=== PATIENT | female | born 1945 | race Caucasian/White ===

== ENCOUNTER → 2017-10-02 07:51 | Outpatient (CLI) | payer MEDICARE, SELFPAY ==
[2017-10-02 09:18] LABS: ALB/GLOB Ratio 0.9 RATIO (0.9-2.4); AST(SGOT) 17 U/L (15-37); Alanine Aminotransfer ALT/SGPT 20 U/L (13-56); Albumin, Serum 3.2 g/dL (3.2-5.0); Alkaline Phosphatase 82 U/L (45-117); Anion Gap 5 (5-15); BUN 20 mg/dL (7-18); BUN/Creat Ratio 34.1 RATIO (10-20); Calcium,Total 8.6 mg/dL (8.5-10.1); Chloride 104 mmol/L (98-107); Cholesterol 153 mg/dL (200); Creatinine, Serum 0.59 mg/dL (0.55-1.02); EST Glomerular Filtration Rate 107 mL/min (>60); Est Glom Filt Rate - Afr Amer 130 mL/min (>60); Globulin 3.6 g/dL (2.2-4.2); Glucose 79 mg/dL (74-106); High Density Lipoprotein 57 mg/dL; Protein, Total 6.8 g/dL (6.4-8.2); Sodium Level 143 mmol/L (136-145); Triglycerides 68 mg/dL; Very Low Density Lipoprotein 14 mg/dL (5-40)
[2017-10-02 09:24] LABS: AST(SGOT) 21 U/L (15-37); Alanine Aminotransfer ALT/SGPT 18 U/L (13-56); Albumin, Serum 3.2 g/dL (3.2-5.0); Alkaline Phosphatase 86 U/L (45-117); Bilirubin, Direct 0.15 mg/dL (0.00-0.30); Globulin 3.5 g/dL (2.2-4.2); Protein, Total 6.7 g/dL (6.4-8.2)
== END ==
PROVIDERS: Family Provider Family Medicine; PCP Family Medicine; Visit Provider Internal Medicine Cardiovascular Disease
DX: E11.9 Type 2 diabetes mellitus without complications (principal); E78.5 Hyperlipidemia, unspecified; E66.9 Obesity, unspecified; E78.1 Pure hyperglyceridemia; I10 Essential (primary) hypertension; R07.9 Chest pain, unspecified
CPT/HCPCS: 36415; 80053; 80061; 80076

== ENCOUNTER → 2017-11-07 10:23 | Outpatient (CLI) | payer MEDICARE, MEDICAID, SELFPAY ==
--- NOTE | 2017-11-07 10:27 | ECHOD_ITS ---
Reason For Study: CAD/ASHD Procedure This was a 2D Doppler, Color Flow transthoracic echocardiogram. The study was technically difficult. Exam performed in department. Left Ventricle Normal size and thickness. The estimated ejection fraction is 60 %. Stage 1 diastolic dysfunction. No regional wall motion abnormalities noted. Right Ventricle Normal size and thickness. Normal systolic function. Atria Normal left atrium. Normal right atrium. Normal atrial septum. Mitral Valve The mitral valve is structurally normal. No prolapse or stenosis seen. Moderate mitral annular calcification extending into the posterior leaflet. Tricuspid Valve Normal tricuspid valve. Trivial tricuspid valve insufficiency. Right ventricular systolic pressure estimated to be 35 mmHg. Aortic Valve Normal aortic valve. Trisinus/trileaflet aortic valve. Pulmonic Valve Normal pulmonic valve. Great Vessels Normal aortic root. Normal arch. Normal inferior vena cava. Inferior vena cava collapse with sniff. Pericardium/Pleural No pericardial effusion. MMode/2D Measurements & Calculations LVIDd: 4.7 cm IVSd: 1.3 cm Ao root diam: 2.9 cm LVIDs: 3.2 cm LVPWd: 1.1 cm LA dimension: 3.5 cm RVDd: 2.8 cm FS: 33.1 % LAV(MOD-bp): 61.8 ml LA A4 area: 19.9 cm2 RA A4 area: 13.9 cm2 LAV(MOD-bp) Indexed: 31.3 ml/m2 LAV(MOD-sp2): 53.9 ml LAV(MOD-sp4): 61.0 ml Doppler Measurements & Calculations MV E max noel: 59.4 cm/sec Lat Peak E' Noel: 7.5 cm/sec Med Peak E' Noel: 6.9 cm/sec MV A max noel: 90.7 cm/sec E/E' lat: 7.9 E/E' med: 8.6 MV E/A: 0.65 Ao V2 max: 123.2 cm/sec LV V1 max: 96.8 cm/sec PA V2 max: 84.0 cm/sec Ao max P.1 mmHg LV V1 max P.7 mmHg TR max noel: 274.8 cm/sec TR max P.3 mmHg Interpretation Summary The estimated ejection fraction is 60 %. Trivial tricuspid valve insufficiency. Right ventricular systolic pressure estimated to be 35 mmHg. Stage 1 diastolic dysfunction. There is no comparison study available. Ordering Physician: Rickie English Referring Physician: Jose Russell Performed By: Michelle Garcia RDCS, RVT
== END ==
PROVIDERS: Family Provider Family Medicine; PCP Family Medicine; Visit Provider Internal Medicine Cardiovascular Disease
DX: R07.9 Chest pain, unspecified (principal)
CPT/HCPCS: 93306

== ENCOUNTER → 2018-04-01 10:08 | Outpatient (CLI) | payer MEDICARE, MEDICAID, SELFPAY ==
[2018-04-01 10:11] LABS: Mucous, Urine 0 SEEN /hpf (<or=2+)
[2018-04-01 10:14] LABS: Color, Urine Yellow (Yellow); Glucose, Dipstick Normal (Normal); Ketone-Dipstick 5 mg/dl (Negative); Leukocyte Esterase-Dipstick 500 /ul (Negative); Nitrite-Dipstick Positive (Negative); Occult Blood-Urine 25 /ul (Negative); Protein-Dipstick 30 mg/dl (Negative); Urine Bilirubin Dipstick Negative (Negative); Urine Clarity Sl. Cloudy (Clear); Urine Urobilinogen Normal (Normal)
[2018-04-01 10:21] LABS: Bacteria 2+ /hpf (None Seen); Red Blood Cells-Urine 0-5 SEEN /hpf (0-5); Squamous Epithelial Cells - UA 0-5 SEEN /hpf (5-10); White Blood Cells 25-50 SEEN /hpf (0-5)
[2018-04-01 10:22] LABS: Calcium Oxalate Crystals Ur 1+ /hpf (<or=2+)
== END ==
PROVIDERS: Family Provider Family Medicine; PCP Family Medicine; Visit Provider Internal Medicine
DX: N39.0 Urinary tract infection, site not specified (principal)
CPT/HCPCS: 81001; 87086; 87088; 87186

== ENCOUNTER → 2018-04-09 12:26 | Outpatient (CLI) | payer MEDICARE, MEDICAID, SELFPAY ==
[2018-04-09 11:32] VITALS: BMI 36.0
[2018-04-09 13:43] LABS: Absolute Lymphocyte Count 1.42 X10^3/ul (0.83-4.51); Absolute Neutrophil Count 5.9 X10^3/uL (2.0-7.7); Basophil# 0.03 X10^3/uL; Basophil% 0.4 % (0-1); Eosinophil# 0.04 X10^3/uL; Eosinophils% 0.5 % (0-5); Hematocrit 46.6 % (37-47); Hemoglobin 14.9 g/dl (12.0-15.0); Lymphocyte # 1.42 X10^3/ul (4.0); Lymphocyte % 17.8 % (19-41); Mean Corpuscular Hgb 30.7 pg (27.0-32.0); Mean Corpuscular Volume 96.1 fL (81-99); Mean Platelet Vol. 12.1 fl (6.2-12.0); Monocyte# 0.63 X10^3/uL; Monocyte% 7.9 % (0-10); Neutrophil # 5.86 X10^3/uL (2.7-7.7); Neutrophil % 73.3 % (47-70); Platelet Count 225 K/mm3 (150-450); RBC Distribution Width CV 12.5 % (11.6-14.6); RBC Distribution Width SD 43.8 fl (35.1-43.9); Red Blood Count 4.85 M/mm3 (4.2-5.4)
[2018-04-09 13:44] LABS: POSITIVE COUNT NO; POSITIVE DIFFERENTIAL NO; POSITIVE MORPHOLOGY NO
[2018-04-09 14:00] LABS: AST(SGOT) 22 U/L (15-37); Alanine Aminotransfer ALT/SGPT 28 U/L (13-56); Albumin, Serum 3.6 g/dL (3.2-5.0); Alkaline Phosphatase 109 U/L (45-117); Anion Gap 8 (5-15); BUN 19 mg/dL (7-18); BUN/Creat Ratio 30.2 RATIO (10-20); Calcium,Total 9.2 mg/dL (8.5-10.1); Chloride 104 mmol/L (98-107); Creatinine, Serum 0.63 mg/dL (0.55-1.02); EST Glomerular Filtration Rate 99 mL/min (>60); Est Glom Filt Rate - Afr Amer 119 mL/min (>60); Globulin 3.6 g/dL (2.2-4.2); Glucose 101 mg/dL (74-106); Potassium 3.8 mmol/L (3.5-5.1); Protein, Total 7.2 g/dL (6.4-8.2); Sodium Level 143 mmol/L (136-145)
== END ==
PROVIDERS: Family Provider Family Medicine; PCP Family Medicine; Referring Provider Family Medicine; Visit Provider Family Medicine
DX: I10 Essential (primary) hypertension (principal); N39.0 Urinary tract infection, site not specified
CPT/HCPCS: 36415; 80053; 85025

== ENCOUNTER → 2018-09-25 14:50 | Outpatient (CLI) | payer MEDICARE, MEDICAID, SELFPAY ==
[2018-09-11 12:38] VITALS: BMI 36.0
[2018-09-25 15:02] LABS: Bacteria 0 SEEN /hpf (None Seen); Red Blood Cells-Urine 0 SEEN /hpf (0-5); Squamous Epithelial Cells - UA 0 SEEN /hpf (5-10)
[2018-09-25 16:02] LABS: Color, Urine Yellow (Yellow); Glucose, Dipstick Normal (Normal); Ketone-Dipstick Negative (Negative); Leukocyte Esterase-Dipstick 25 /ul (Negative); Nitrite-Dipstick Negative (Negative); Occult Blood-Urine Negative /ul (Negative); Protein-Dipstick Negative (Negative); Urine Bilirubin Dipstick Negative (Negative); Urine Clarity Clear (Clear); Urine Urobilinogen Normal (Normal)
[2018-09-25 16:09] LABS: Hyaline Cast 5-10 SEEN /lpf (0-5)
[2018-09-25 16:10] LABS: Calcium Oxalate Crystals Ur RARE /hpf (<or=2+); Mucous, Urine 1+ /hpf (<or=2+); White Blood Cells 0-5 SEEN /hpf (0-5)
== END ==
PROVIDERS: Family Provider Family Medicine; PCP Family Medicine; Referring Provider Family Medicine; Visit Provider Family Medicine
DX: N39.0 Urinary tract infection, site not specified (principal)
CPT/HCPCS: 81001

== ENCOUNTER → 2018-10-08 10:59 | Outpatient (CLI) | payer MEDICARE, MEDICAID, SELFPAY ==
[2018-10-08 10:31] VITALS: BMI 36.0
[2018-10-08 12:46] LABS: AST(SGOT) 26 U/L (15-37); Alanine Aminotransfer ALT/SGPT 25 U/L (13-56); Albumin, Serum 3.5 g/dL (3.2-5.0); Alkaline Phosphatase 90 U/L (45-117); Anion Gap 4 (5-15); BUN 17 mg/dL (7-18); BUN/Creat Ratio 25.3 RATIO (10-20); Calcium,Total 8.6 mg/dL (8.5-10.1); Chloride 104 mmol/L (98-107); Cholesterol 162 mg/dL (200); Creatinine, Serum 0.67 mg/dL (0.55-1.02); EST Glomerular Filtration Rate 91 mL/min (>60); Est Glom Filt Rate - Afr Amer 111 mL/min (>60); Globulin 3.6 g/dL (2.2-4.2); Glucose 100 mg/dL (74-106); High Density Lipoprotein 49 mg/dL; Potassium 3.7 mmol/L (3.5-5.1); Protein, Total 7.1 g/dL (6.4-8.2); Sodium Level 140 mmol/L (136-145); Triglycerides 135 mg/dL; Very Low Density Lipoprotein 27 mg/dL (5-40)
== END ==
PROVIDERS: Family Provider Family Medicine; PCP Family Medicine; Visit Provider Family Medicine
DX: E78.5 Hyperlipidemia, unspecified (principal); M54.9 Dorsalgia, unspecified; G89.29 Other chronic pain; E66.9 Obesity, unspecified
CPT/HCPCS: 36415; 80053; 80061; 87086; 87088

== ENCOUNTER → 2018-10-16 06:57 | Outpatient (CLI) | payer MEDICARE, MEDICAID, SELFPAY ==
[2018-10-08 10:31] VITALS: BMI 36.0
--- NOTE | 2018-10-16 14:08 | STRESSREP ---
Stress Test Report Date: October 16, 2018 Procedure: Pharmacologic stress nuclear imaging study Indications: Chest pain Consent: Per the patient Procedure: The patient underwent pharmacologic (Regadenoson) evaluation with a peak heart rate of 77 beats per minute (52 %predicted maximal heart rate) and a peak blood pressure of 158/80 mmHg. The baseline ECG demonstrated normal sinus rhythm no significant ST-T changes. EKG during lexiscan infusion revealed no significant change from baseline. EKG post infusion revealed no significant change from baseline [There were no cardiac dysrhythmias pretest, during pharmacologic infusion, or recovery]. [There was no complaint of chest discomfort during pharmacologic infusion or recovery]. The examination was discontinued secondary to completion of protocol. Impression: 1. Lexiscan stress test test is negative for Lexiscan infusion induced EKG changes of ischemia. 2. Lexiscan stress test test negative for Lexiscan infusion induced chest pain. 3. Results of the nuclear portion of the test is as below Myocardial perfusion imaging study: Technique: The patient was injected with 11.9 millicuries of technetium 99m Cardiolite and subsequently rest SPECT Cardiolite nuclear imaging was obtained in the horizontal long, vertical long, and short axis views. The patient underwent pharmacologic (Regadenoson) evaluation with a peak heart rate of 77 beats per minute (52 % percent predicted maximal heart rate) and a peak blood pressure of 158/80 mmHg. The patient was injected with 34.6 millicuries of technetium 99m Cardiolite and subsequently stress SPECT Cardiolite nuclear imaging was obtained in the horizontal long, vertical long, and short axis views. A gated Cardiolite study at peak stress was obtained. Interpretation: Rest and stress SPECT Cardiolite nuclear imaging status post realignment, normalization, and attenuation correction demonstrate normal myocardial radioisotope uptake overall on the rest and stress images. There is no evidence of significant ischemia or infarction. Gated images reveal no significant regional wall motion abnormalities. The reported LVEF is greater than 70 %. Impression: 1. There is no evidence of significant ischemia or infarction 2. Estimated ejection fraction is greater than 70%. This note was generated with [employer] software. It may contain incorrect words, spelling, and punctuation that were not noted in checking the note before signing.
--- NOTE | 2018-10-16 14:13 | STRESSREP_ITS ---
Stress Test Report Date: October 16, 2018 Procedure: Pharmacologic stress nuclear imaging study Indications: Chest pain Consent: Per the patient Procedure: The patient underwent pharmacologic (Regadenoson) evaluation with a peak heart rate of 77 beats per minute (52 %predicted maximal heart rate) and a peak blood pressure of 158/80 mmHg. The baseline ECG demonstrated normal sinus rhythm no significant ST-T changes. EKG during lexiscan infusion revealed no significant change from baseline. EKG post infusion revealed no significant change from baseline [There were no cardiac dysrhythmias pretest, during pharmacologic infusion, or recovery]. [There was no complaint of chest discomfort during pharmacologic infusion or recovery]. The examination was discontinued secondary to completion of protocol. Impression: 1. Lexiscan stress test test is negative for Lexiscan infusion induced EKG changes of ischemia. 2. Lexiscan stress test test negative for Lexiscan infusion induced chest pain. 3. Results of the nuclear portion of the test is as below Myocardial perfusion imaging study: Technique: The patient was injected with 11.9 millicuries of technetium 99m Cardiolite and subsequently rest SPECT Cardiolite nuclear imaging was obtained in the horizontal long, vertical long, and short axis views. The patient underwent pharmacologic (Regadenoson) evaluation with a peak heart rate of 77 beats per minute (52 % percent predicted maximal heart rate) and a peak blood pressure of 158/80 mmHg. The patient was injected with 34.6 millicuries of technetium 99m Cardiolite and subsequently stress SPECT Cardiolite nuclear imaging was obtained in the horizontal long, vertical long, and short axis views. A gated Cardiolite study at peak stress was obtained. Interpretation: Rest and stress SPECT Cardiolite nuclear imaging status post realignment, normalization, and attenuation correction demonstrate normal myocardial radioi sotope uptake overall on the rest and stress images. There is no evidence of significant ischemia or infarction. Gated images reveal no significant regional wall motion abnormalities. The reported LVEF is greater than 70 %. Impression: 1. There is no evidence of significant ischemia or infarction 2. Estimated ejection fraction is greater than 70%. This note was generated with Peerby software. It may contain incorrect words, spelling, and punctuation that were not noted in checking the note before signing.
== END ==
PROVIDERS: Family Provider Family Medicine; PCP Family Medicine; Referring Provider Family Medicine; Visit Provider Family Medicine
DX: I25.2 Old myocardial infarction (principal)
CPT/HCPCS: 78452; 93017; A9500; A4216; J2785

== ENCOUNTER → 2019-05-23 14:16 | Outpatient (CLI) | payer MEDICARE, SELFPAY ==
[2019-05-23 13:09] VITALS: BMI 36.0
[2019-05-23 14:49] LABS: Color, Urine Yellow (Yellow); Glucose, Dipstick Normal (Normal); Ketone-Dipstick 5 mg/dl (Negative); Leukocyte Esterase-Dipstick 500 /ul (Negative); Nitrite-Dipstick Positive (Negative); Occult Blood-Urine 50 /ul (Negative); Protein-Dipstick 15 mg/dl (Negative); Specific Gravity, Urine 1.015 (1.002-1.030); Urine Bilirubin Dipstick Negative (Negative); Urine Clarity Cloudy (Clear); Urine Urobilinogen Normal (Normal)
[2019-05-23 14:58] LABS: Bacteria 4+ /hpf (None Seen); Mucous, Urine 1+ /hpf (<or=2+); Red Blood Cells-Urine 0-5 SEEN /hpf (0-5); Squamous Epithelial Cells - UA 0-5 SEEN /hpf (5-10); White Blood Cells 25-50 SEEN /hpf (0-5)
== END ==
PROVIDERS: Family Provider Family Medicine; PCP Family Medicine; Referring Provider Physician Assistant; Visit Provider Physician Assistant
DX: R30.0 Dysuria (principal)
CPT/HCPCS: 81001; 87086; 87088; 87186

== ENCOUNTER → 2019-09-10 | Outpatient (CLI) | payer MEDICAID, SELFPAY ==
[2019-09-01 16:02] VITALS: BMI 36.0
== END | disposition home or self-care (01) ==
LOC: LABSPEC 12:15
PROVIDERS: PCP Family Medicine; Referring Provider Family Medicine; Visit Provider Family Medicine
DX: N39.0 Urinary tract infection, site not specified (principal)
CPT/HCPCS: 87086; 87088

== ENCOUNTER → 2019-11-01 15:01 | Outpatient (CLI) | payer MEDICARE, MEDICAID, SELFPAY ==
[2019-11-01 13:19] VITALS: BMI 36.0
[2019-11-01 15:05] LABS: Mucous, Urine 0 SEEN /hpf (<or=2+)
[2019-11-01 15:13] LABS: Color, Urine Yellow (Yellow); Glucose, Dipstick Normal (Normal); Ketone-Dipstick Negative (Negative); Leukocyte Esterase-Dipstick 25 /ul (Negative); Nitrite-Dipstick Positive (Negative); Occult Blood-Urine 25 /ul (Negative); Protein-Dipstick Negative (Negative); Urine Bilirubin Dipstick Negative (Negative); Urine Clarity Clear (Clear); Urine Urobilinogen Normal (Normal)
[2019-11-01 15:23] LABS: White Blood Cells 10-25 SEEN /hpf (0-5)
[2019-11-01 15:24] LABS: Bacteria 2+ /hpf (None Seen); Red Blood Cells-Urine 0-5 SEEN /hpf (0-5); Squamous Epithelial Cells - UA 0-5 SEEN /hpf (5-10)
[2019-11-01 15:25] LABS: Hyaline Cast 0-5 SEEN /lpf (0-5)
== END ==
PROVIDERS: PCP Family Medicine; Referring Provider Nurse Practitioner Family; Visit Provider Nurse Practitioner Family
DX: R30.0 Dysuria (principal)
CPT/HCPCS: 81001; 87086; 87088; 87186

== ENCOUNTER → 2019-12-08 10:40 | Outpatient (CLI) | payer MEDICARE, MEDICAID, SELFPAY ==
[2019-12-08 10:22] VITALS: BMI 36.0
[2019-12-08 10:45] LABS: Red Blood Cells-Urine 0 SEEN /hpf (0-5)
[2019-12-08 12:25] LABS: Color, Urine Yellow (Yellow); Glucose, Dipstick Normal (Normal); Ketone-Dipstick 5 mg/dl (Negative); Leukocyte Esterase-Dipstick 25 /ul (Negative); Nitrite-Dipstick Negative (Negative); Occult Blood-Urine 10 /ul (Negative); Protein-Dipstick Negative (Negative); Urine Bilirubin Dipstick Negative (Negative); Urine Clarity Sl. Cloudy (Clear); Urine Urobilinogen Normal (Normal)
[2019-12-08 12:35] LABS: Bacteria RARE /hpf (None Seen); Mucous, Urine 1+ /hpf (<or=2+); Squamous Epithelial Cells - UA 0-5 SEEN /hpf (5-10); White Blood Cells 0-5 SEEN /hpf (0-5)
[2019-12-08 12:45] LABS: ALB/GLOB Ratio 0.9 RATIO (0.9-2.4); AST(SGOT) 21 U/L (15-37); Alanine Aminotransfer ALT/SGPT 22 U/L (13-56); Albumin, Serum 3.5 g/dL (3.2-5.0); Alkaline Phosphatase 102 U/L (45-117); Anion Gap 4 (5-15); BUN 19 mg/dL (7-18); BUN/Creat Ratio 29.1 RATIO (10-20); Chloride 103 mmol/L (98-107); Cholesterol 163 mg/dL (200); Creatinine, Serum 0.65 mg/dL (0.55-1.02); EST Glomerular Filtration Rate 94 mL/min (>60); Est Glom Filt Rate - Afr Amer 114 mL/min (>60); Globulin 3.7 g/dL (2.2-4.2); Glucose 108 mg/dL (74-106); High Density Lipoprotein 51 mg/dL; Potassium 3.8 mmol/L (3.5-5.1); Protein, Total 7.2 g/dL (6.4-8.2); Sodium Level 140 mmol/L (136-145); Triglycerides 122 mg/dL; Very Low Density Lipoprotein 24 mg/dL (5-40)
== END ==
PROVIDERS: PCP Family Medicine; Referring Provider Family Medicine; Visit Provider Family Medicine
DX: E11.9 Type 2 diabetes mellitus without complications (principal); M54.9 Dorsalgia, unspecified; I25.2 Old myocardial infarction; R30.0 Dysuria
CPT/HCPCS: 36415; 80053; 80061; 81001; 87086; 87088

== ENCOUNTER → 2020-01-18 15:35 | Outpatient (CLI) | payer MEDICARE, SELFPAY ==
[2020-01-18 12:06] VITALS: BMI 36.0
[2020-01-18 16:16] LABS: Bacteria 0 SEEN /hpf (None Seen); Mucous, Urine 0 SEEN /hpf (<or=2+); Red Blood Cells-Urine 0 SEEN /hpf (0-5); Squamous Epithelial Cells - UA 0 SEEN /hpf (5-10); White Blood Cells 0 SEEN /hpf (0-5)
[2020-01-18 17:14] LABS: Color, Urine Yellow (Yellow); Glucose, Dipstick Normal (Normal); Ketone-Dipstick Negative (Negative); Leukocyte Esterase-Dipstick Negative /ul (Negative); Nitrite-Dipstick Negative (Negative); Occult Blood-Urine 10 /ul (Negative); Protein-Dipstick Negative (Negative); Specific Gravity, Urine 1.015 (1.002-1.030); Urine Bilirubin Dipstick Negative (Negative); Urine Clarity Clear (Clear); Urine Urobilinogen Normal (Normal)
== END ==
PROVIDERS: PCP Family Medicine; Referring Provider Physician Assistant Surgical; Visit Provider Physician Assistant Surgical
DX: M54.9 Dorsalgia, unspecified (principal); G89.29 Other chronic pain; R10.9 Unspecified abdominal pain
CPT/HCPCS: 81001; 87086

== ENCOUNTER → 2020-03-16 09:04 | Outpatient (CLI) | payer MEDICARE, MEDICAID, SELFPAY ==
[2020-01-18 12:06] VITALS: BMI 36.0
--- NOTE | 2020-03-16 09:08 | US_ITS ---
STUDY: RENAL ULTRASOUND - COMPLETE REASON FOR EXAM: Female, 74 years old. UTI, HEMATURIA TECHNIQUE: Ultrasound evaluation of the kidneys was performed with real-time and static yu-scale imaging. COMPARISON: None. FINDINGS: RIGHT KIDNEY: Normal location of the right kidney, which is normal in size. The right kidney measures 9.8 cm x 4.9 cm x 5.5 cm. There is a normal cortex of the right kidney. The renal cortex measures 2.1 cm. There is no right renal mass or cyst. There are no right renal calculi. There is no right hydronephrosis. DISTAL RIGHT URETER: There is non-visualization of the distal right ureter. There is no demonstrated right ureterovesical junction calculus. There is no demonstrated right ureteral jet. LEFT KIDNEY: Normal location of the left kidney, which is normal in size. The left kidney measures 9.5 cm x 5.7 cm x 5.1 cm. There is a normal cortex of the left kidney. The renal cortex measures 1.7 cm. There is no left renal mass or cyst. There are no left renal calculi. There is no left hydronephrosis. DISTAL LEFT URETER: There is non-visualization of the distal left ureter. There is no demonstrated left ureterovesical junction calculus. There is no demonstrated left ureteral jet. BLADDER: The bladder is not distended enough for evaluation. US/Kidney and Bladder IMPRESSION: Normal ultrasound of the kidneys Electronically Signed: Edward Espitia, at 14:58 EDT , Service support ,
== END ==
PROVIDERS: PCP Family Medicine; Referring Provider Urology; Visit Provider Urology
DX: N39.0 Urinary tract infection, site not specified (principal)
CPT/HCPCS: 76770

== ENCOUNTER → 2020-06-08 11:09 | Outpatient (CLI) | payer MEDICARE, SELFPAY ==
[2020-01-18 12:06] VITALS: BMI 36.0
[2020-06-08 12:46] LABS: Anion Gap 4 (5-15); BUN 17 mg/dL (7-18); BUN/Creat Ratio 23.1 RATIO (10-20); Calcium,Total 9.2 mg/dL (8.5-10.1); Chloride 106 mmol/L (98-107); Cholesterol 171 mg/dL (200); Creatinine, Serum 0.74 mg/dL (0.55-1.02); EST Glomerular Filtration Rate 82 mL/min (>60); Est Glom Filt Rate - Afr Amer 99 mL/min (>60); Glucose 90 mg/dL (74-106); High Density Lipoprotein 55 mg/dL; Potassium 3.5 mmol/L (3.5-5.1); Sodium Level 142 mmol/L (136-145); Triglycerides 122 mg/dL; Very Low Density Lipoprotein 24 mg/dL (5-40)
== END ==
PROVIDERS: PCP Family Medicine; Visit Provider Family Medicine
DX: I10 Essential (primary) hypertension (principal); E11.9 Type 2 diabetes mellitus without complications
CPT/HCPCS: 36415; 80048; 80061

== ENCOUNTER → 2020-08-10 15:09 | Outpatient (CLI) | payer MEDICARE, MEDICAID, SELFPAY ==
[2020-01-18 12:06] VITALS: BMI 36.0
--- NOTE | 2020-08-10 15:14 | US_ITS ---
STUDY: ULTRASOUND OF THE FEMALE PELVIS - COMPLETE REASON FOR EXAM: Female, 74 years old. POSTMENOPAUSAL BLEEDING -- UTERINE BLEEDING LMP: Patient is postmenopausal. TECHNIQUE: Transabdominal and Transvaginal TECHNICAL QUALITY: Adequate. COMPARISON: None. FINDINGS: The uterus is anteverted and is in a midline position. The uterus measures 5 cm x 2.7 cm x 4.1 cm. Normal uterine cervix. The endometrium measures 2 mm in thickness, and is hyperechoic. There is no demonstrated endometrial mass. There is no demonstrated myometrial mass. I.U.D. - The patient does not have an I.U.D. The right ovary is non-visualized. The left ovary is non-visualized. There is no fluid in the cul-de-sac. The pre void volume of the bladder was 19 ml. US/Transvaginal Non- IMPRESSION: Normal postmenopausal female pelvis. Electronically Signed: Edward Espitia MD at 10:29 EDT , Service support ,
== END ==
PROVIDERS: PCP Family Medicine; Referring Provider Urology; Visit Provider Urology
DX: N93.9 Abnormal uterine and vaginal bleeding, unspecified (principal)
CPT/HCPCS: 76830

== ENCOUNTER 2020-09-13 11:13 | Day surgery (SDC) | payer MEDICARE, MEDICAID, SELFPAY ==
[2020-08-12 14:58] VITALS: BMI 41.6
--- NOTE | 2020-09-07 10:38 | EKG12_ITS ---
Test Reason : PREOP Blood Pressure : / mmHG Vent. Rate : 071 BPM Atrial Rate : 071 BPM P-R Int : 164 ms QRS Dur : 088 ms QT Int : 384 ms P-R-T Axes : 023 -25 016 degrees QTc Int : 417 ms Normal sinus rhythm with sinus arrhythmia Leftward axis Poor R wave progression Confirmed by TRANG MIGUEL, JAVIER ([id number]), online editor JAGDISH DONG ([id number]) on 09/08/2020 11:20:55 AM Referred By: Wanda Guillory Confirmed By:JAVIER COSTELLO MD
[2020-09-07 11:27] LABS: Hematocrit 42.5 % (37-47); Hemoglobin 13.4 g/dL (12.0-15.0); Mean Corp Hgb Conc 31.5 g/dL (32-36); Mean Corpuscular Hgb 30.9 pg (27.0-32.0); Mean Corpuscular Volume 97.9 fL (81-99); Mean Platelet Vol. 11.3 fl (6.2-12.0); Platelet Count 212 K/mm3 (150-450); RBC Distribution Width CV 12.4 % (11.6-14.6); RBC Distribution Width SD 44.7 fl (35.1-43.9); Red Blood Count 4.34 M/mm3 (4.2-5.4); White Blood Count 6.8 K/mm3 (4.4-11.0)
[2020-09-07 11:55] LABS: ALB/GLOB Ratio 0.9 RATIO (0.9-2.4); AST(SGOT) 22 U/L (15-37); Alanine Aminotransfer ALT/SGPT 23 U/L (13-56); Albumin, Serum 3.2 g/dL (3.2-5.0); Alkaline Phosphatase 83 U/L (45-117); Anion Gap 3 (5-15); BUN 23 mg/dL (7-18); Calcium,Total 9.1 mg/dL (8.5-10.1); Chloride 104 mmol/L (98-107); Creatinine, Serum 0.66 mg/dL (0.55-1.02); EST Glomerular Filtration Rate 93 mL/min (>60); Est Glom Filt Rate - Afr Amer 113 mL/min (>60); Globulin 3.6 g/dL (2.2-4.2); Glucose 137 mg/dL (74-106); Potassium 3.3 mmol/L (3.5-5.1); Protein, Total 6.8 g/dL (6.4-8.2); Sodium Level 139 mmol/L (136-145)
--- NOTE | 2020-09-13 09:22 | HP.PCM_ITS ---
- Problem List (1) Postmenopausal bleeding Status: Acute Comment: from dr ochoa. recommend d and c hysteroscopy. (2) Hypertension Status: Chronic Qualifiers: (3) Obesity Status: Chronic (4) Type 2 diabetes mellitus without complications Status: Chronic History and Physical Date of Admission: 09/13/20 Intake Vital Signs 08/12/20 Height 5 ft 3 in 08/12/20 Weight: 235 lb 08/12/20 BMI 41.6 Intake Visit Reasons: AUB, ref by Dr. Ochoa Chief Complaint: AUB [employer] Counselor Required: No Is patient in pain?: No Allergies pregabalin [From Lyrica] Allergy (Severe, Verified 08/12/20 14:59) Shortness of breath Steroids Allergy (Intermediate, Uncoded 08/12/20 14:59) Vomiting Medications fentanyl 25 mcg/hr transdermal patch 1 patch TRANSDERMAL Q72H 09/26/17 [History Confirmed 08/12/20] hydrocodone 7.5 mg-acetaminophen 325 mg tablet 1 tab PO TID PRN tab 09/26/17 [History Confirmed 08/12/20] incontinence pad, liner, disp See Dose Instructions .ROUTE .MEDSUPPLY #200 ea 09/26/17 [Rx Confirmed 08/12/20] multivitamin 1 tab PO QAM 09/26/17 [History Confirmed 08/12/20] tizanidine 4 mg capsule 4 mg PO TID PRN 09/26/17 [History Confirmed 08/12/20] cholecalciferol (vitamin D3) 125 mcg (5,000 unit) capsule 5,000 unit PO QDAY 10/01/17 [History Confirmed 08/12/20] ferrous sulfate 324 mg (65 mg iron) tablet,delayed release 324 mg PO QDAY tab 10/01/17 [History Confirmed 06/08/20] melatonin 5 mg capsule mg PO cap 03/31/18 [History Confirmed 08/12/20] blood pressure monitor See Rx Instructions .ROUTE .MEDSUPPLY #1 ea 03/11/19 [Rx Confirmed 06/08/20] fluorometholone 0.1 % eye drops,suspension 1 drp OPHTHALMIC Q12H ml 03/11/19 [History Confirmed 08/12/20] gabapentin 300 mg capsule 300 mg PO TID 03/11/19 [History Confirmed 08/12/20] cyclosporine 0.05 % eye drops 1 drp OPHTHALMIC Q12H 09/01/19 [History Confirmed 08/12/20] furosemide 20 mg tablet See Rx Instructions .ROUTE .COMPLEX #90 tablet 12/08/19 [Rx Confirmed 06/08/20] potassium chloride 10 mEq tablet,extended release 10 meq PO QDAY #90 tab 12/30/19 [Rx Confirmed 08/12/20] pravastatin 40 mg tablet 40 mg PO QDAY #90 tab 01/05/20 [Rx Confirmed 08/12/20] verapamil 120 mg 24 hr capsule,extended release 120 mg PO QDAY #90 cap 05/26/20 [Rx Confirmed 08/12/20] fesoterodine 4 mg tablet,extended release 24 hr 4 mg PO DAILY 06/08/20 [History Confirmed 08/12/20] duloxetine 60 mg capsule,delayed release 120 mg PO QDAY #180 cap 06/24/20 [Rx Confirmed 08/12/20] Is last menstrual period known: No Post menopausal: Yes Patient : No : No PFSH Medical History Obesity (Chronic) Type 2 diabetes mellitus without complications (Chronic) Non-ST elevation (NSTEMI) myocardial infarction (Chronic) Hyperlipidemia (Chronic) Hypertension (Chronic) Frequent UTI (Acute) Back pain (Chronic) Obstructive sleep apnea (Chronic) Osteoarthritis (Chronic) Back problem (Inactive) Heart disease (Inactive) High blood pressure (Inactive) High cholesterol (Inactive) High triglycerides (Inactive) Rheumatoid arthritis (Inactive) Surgical History History of bilateral cataract extraction (Chronic) History of cholecystectomy (Chronic) History of gastric bypass (Chronic ~09/2013) History of tonsillectomy (Chronic) Family History Brother Alcohol abuse Myocardial infarction Father Angina pectoris Arthritis Myocardial infarction Heart disease Hypertension Mother Arthritis Social History (Updated 08/13/20 @ 05:[address] Wanda Guillory MD) Smoking Status: Former smoker pack-years: 10 alcohol intake: never substance use type: does not use caffeine: Yes what type of physical activity do you participate in: none seatbelt use: always do you feel safe at home: Yes additional social history: - retired HPI AUB, ref by Dr. Ochoa: Details: BIRD CODY is a 74 year old who presents for referral by Dr Ochoa for postmenopausal bleeding. she had a 12 day episode of significant bleeding that stopped and she hasn't had any since. she denies any cramping or abnormal discharge. she had an ultrasound that shows 2 mm lining but heterogenous. Female Reproductive History Questions: Metorrhagia: Yes Menopausal Symptoms: No night sweats Pregancy History 3 Elective abortions Hx Para 2 Spontaneous abortions 1 Hx # Term Pregnancies Ectopic pregnancies Hx # Pregnancies Multiple births # of living children 2 Past Pregnancies Del. Date Name GA/Weeks Outcome Route Bth Weight Gen Labor Lgth Anesthesia Del Locatn Provider FOB Unknown 1973 Sina live - full term Unknown 1977 Nemesio live - full term NS VD ROS Const Constitutional: Denies fatigue, night sweats, weight gain or weight loss ENT ENT: Reports system reviewed and no additional complaints, except as docu Cardio Card: Denies chest pain Resp Resp: Denies cough or dyspnea GI GI: Reports as per HPI; denies constipation, nausea or vomiting : Reports as per HPI; denies nipple discharge, vaginal discharge, vaginal dryness, vaginal odor or vaginal itching Musc Musc: Denies joint pain, back pain or muscle weakness Skin Skin/Breast: Denies hair loss, change in hair, dry skin, breast lump, breast pain, breast skin changes or nipple discharge Neuro Neuro: Reports system reviewed and no additional complaints, except as docu Psych Psych: Reports system reviewed and no additional complaints, except as docu Endo Endo: Denies cold intolerance, excessive sweating, heat intolerance or increased thirst Edmond/Lymph Hematologic/Lymphatic: Denies easy bleeding, Denies easy bruising, Denies enlarged lymph nodes Exam Const General: cooperative, healthy appearing, comfortable, no acute distress, well developed Orientation: alert HENMT Head: normal to inspection, normocephalic Ears: hearing grossly normal bilaterally, external ears normal Nose: external nose normal, nares normal Face and sinus: normal facial exam Neck Neck: normal visual inspection, no lymphadenopathy Thyroid: thyroid normal Chest Chest palpation & inspection: normal inspection of the chest Resp Effort & Inspection: normal respiratory effort Auscultation: clear to auscultation bilaterally Cardio Rate: regular rate Rhythm: regular rhythm Heart Sounds: S1 normal, S2 normal GI Inspection: normal to inspection, non-distended Palpation: soft, no hepatosplenomegaly Musc Other: gross motor intact no deficits, full bilateral strength Skin General: no rashes or lesions noted Neuro General: alert, awake, moves all extremities, no focal motor deficits Motor: muscle tone normal throughout Extrem General: normal to inspection, no pedal edema Psych Appearance: grossly normal Mental Status: mental status grossly normal Affect: normal affect Speech and Movement: speech and movement normal Assessment & Plan Problems 1. Type 2 diabetes mellitus without complications E11.9 2. Postmenopausal bleeding N95.[address] ocoha. recommend d and c hysteroscopy. Plan After discussing the patient's diagnosis and treatment plan options, patient wishes to proceed with surgical management. I have discussed with the patient the risks, benefits, and alternatives of the procedure which include but are not limited to risks of anesthesia, bleeding, infection, possible damage to bowel, bladder, or surrounding vasculature which could lead to additional surgery to evaluate any complications. Patient agrees to procedure and wishes to proceed. ACOG/uptodate references given for additional information regarding procedure. Coding Level of Care Code Off vis,new,level 4 Diagnoses Type 2 diabetes mellitus without complications E11.9 Postmenopausal bleeding N95.0 UPDATE- I have seen the patient and performed any clinically relevant updates to the history and physical exam. Wanda Guillory MD
[2020-09-13 11:54] VITALS: BP 148/80; PULSE 78; RESP 16; TEMP 36; O2SAT 94; BMI 42.3
[2020-09-13] MEDS: Lactated Ringers 1,000 ML 100 ML IV (12:03)
--- NOTE | 2020-09-13 13:00 | EMB_PTH ---
PATIENT: BIRD CODY LOC: [facility] [place] U#:[id number] AGE/SX: 74/F ROOM: RE09/13/[address]: Dr. Wanda Guillory MD : 1945 BED: DIS: 09/13/2020 SPEC #: [id number] RECD: 09/13/20 14:42 STATUS: MARY REKrystle #: [id number] NAHEED: 09/13/20 13:[address]: Wanda Guillory DEPT: SURGICAL PATHOLOGY RECD BY: Stacy Garcia ENTERED: 09/14/20 10:55 SP TYPE: ENDOM BX/C OTHR DR: Dr. Jose Russell, DO Tissues: Endometrium, NOS Procedures: Surgery Specimen Level III HEADER OPERATION: Hysteroscopy, dilation and curettage PRE-OP DIAGNOSIS: Postmenopausal bleeding TISSUE SUBMITTED: Endometrial curettings MICROSCOPIC DIAGNOSIS Endometrial curettings: Scant fragment of cystic atrophic endometrium. Fragments of benign ecto- and endocervical mucosa. JOCELYN:prema 09/15/20 MICROSCOPIC DESCRIPTION Slides are reviewed. GROSS DESCRIPTION Received in fixative is one container labeled with the patient's name and designated endometrial curettings. The specimen consists of multiple irregular fragments of light baig soft tissue that in aggregate measure 1 x <0.1 x <0.1 cm. The specimen is totally submitted in one cassette. / AM:prema 09/14/20 TC:5 CPT: 20780
[2020-09-13] MEDS: Lidocaine 1% (30 ml sdv) 30 ML Vial (13:58)
--- NOTE | 2020-09-13 14:05 | PCM.OPRPT ---
Problem List (1) Postmenopausal bleeding Status: Acute Comment: from dr liz. recommend d and c hysteroscopy. (2) Hypertension Status: Chronic Qualifiers: (3) Obesity Status: Chronic (4) Type 2 diabetes mellitus without complications Status: Chronic Report of Operation Date of Procedure: 09/13/20 Pre-Operative Diagnosis: pmb Post-Operative Diagnosis: same Surgery/Procedure Performed:: d and c hysteroscopy Description of Surgical Findings:: atrophic lining Type of Anesthesia:: Local MAC Special Medications: none Specimen's removed: emc Drains: none Estimated Blood Loss (mL): minimal Fluids Replaced: crystalloid Description of Procedure: Patient was prepped and draped in a normal sterile fashion under MAC anesthesia. A weighted speculum was placed in the vagina and the anterior lip of the cervix was grasped with a single-tooth tenaculum. A paracervical block was placed with 1% lidocaine. Cervix was progressively dilated to allow passage of a 5 mm hysteroscope. The lining was fully visualized and noted to have a thin atrophic lining with no gross abnormalities or lesions present. Uterine sounded to 8 cm. Curettage was performed and very minimal amount of tissue due to the severe atrophy was removed, sent to pathology. All instruments were removed from the vagina and excellent hemostasis was noted. Patient was awoken and taken to recovery in stable condition. Grafts/Implants Used: none Multi Select Codes - Urinary/Genital Urinary/Genital CPT Codes: 88172 Hysteroscopy,EMC, Polypectomy
--- NOTE | 2020-09-13 14:11 | DCINST_ITS ---
Discharge Diet: No Restrictions Discharge Activity: Return to Normal Activity, May Shower, May Take a Tub Bath Allergies/Adverse Reactions: Allergies pregabalin [From Lyrica] Allergy (Severe, Verified 09/13/20 11:52) Shortness of breath Steroids Allergy (Intermediate, Uncoded 09/13/20 11:52) Vomiting Medications to take at Discharge fentanyl 25 mcg/hr transdermal patch 1 patch TRANSDERMAL Q72H 09/26/17 hydrocodone 7.5 mg-acetaminophen 325 mg tablet 1 tab PO TID PRN tab 09/26/17 multivitamin 1 tab PO QAM 09/26/17 tizanidine 4 mg capsule 4 mg PO TID PRN 09/26/17 cholecalciferol (vitamin D3) 125 mcg (5,000 unit) capsule 5,000 unit PO QDAY 10/01/17 melatonin 5 mg capsule 10 mg PO QHS cap 03/31/18 fluorometholone 0.1 % eye drops,suspension 1 drp OPHTHALMIC Q12H ml 03/11/19 gabapentin 300 mg capsule 300 mg PO TID 03/11/19 potassium chloride 10 mEq tablet,extended release 10 meq PO QDAY #90 tab 12/30/19 verapamil 120 mg 24 hr capsule,extended release 120 mg PO QDAY #90 cap 05/26/20 duloxetine 60 mg capsule,delayed release 120 mg PO QDAY #180 cap 06/24/20 Fesoterodine Fumarate [Toviaz] 4 mg PO 1500 09/06/20 Lidocaine 1 each TP PRN PRN 09/06/20 Lifitegrast [Xiidra] 1 drp EACH EYE BID 09/06/20 Polyethylene Glycol 400 [Blink Gel Tears] 1 drp OP PRN PRN 09/06/20 Pravastatin Sodium 40 mg PO QHS 09/06/20 furosemide 20 mg tablet 20 mg PO DAILY #90 tablet 09/07/20 Primary Care Physician: Jose Russell DO [Primary Care Provider] - Test Results: Test results from this visit will be discussed in further detail at your follow- up appointment, if applicable. Please Follow Up With: Wanda Guillory MD - [phone]
[2020-09-13 14:15] VITALS: BP 143/77; BP 148/80; PULSE 81; RESP 18; TEMP 36.2; O2SAT 98
[2020-09-13 14:20] VITALS: BP 138/87; BP 148/80; PULSE 79; RESP 18; O2SAT 94
[2020-09-13 14:25] VITALS: BP 148/80; BP 152/85; PULSE 78; RESP 18; O2SAT 96
[2020-09-13 14:30] VITALS: BP 136/85; BP 148/80; PULSE 78; RESP 18; TEMP 36.7; O2SAT 94
[2020-09-13] MEDS: HYDROcodone Bitartrate/Apap 5/325 Tablet PO (14:52)
[2020-09-13 15:23] VITALS: BP 123/70; BP 148/80; PULSE 79; RESP 16; TEMP 36.7; O2SAT 96
== END 2020-09-13 15:39 | disposition home or self-care (01) ==
LOC: SDC 11:13 → AC 11:18
PROVIDERS: PCP Family Medicine; Referring Provider Obstetrics & Gynecology; Visit Provider Obstetrics & Gynecology
PROC: 0UDB8ZZ Extraction of Endometrium, Via Natural or Artificial Opening Endoscopic (ICD-10-PCS; CPT 58558; principal; 2020-09-13 12:50)
DX: N95.0 Postmenopausal bleeding (principal); E66.9 Obesity, unspecified; Z68.41 Body mass index [BMI] 40.0-44.9, adult; E11.9 Type 2 diabetes mellitus without complications; I11.0 Hypertensive heart disease with heart failure; I50.9 Heart failure, unspecified; I25.2 Old myocardial infarction; G47.33 Obstructive sleep apnea (adult) (pediatric); M19.90 Unspecified osteoarthritis, unspecified site; Z98.84 Bariatric surgery status; Z78.0 Asymptomatic menopausal state; Z87.440 Personal history of urinary (tract) infections; Z79.899 Other long term (current) drug therapy; Z87.891 Personal history of nicotine dependence
CPT/HCPCS: 00952; 58558; 36415; 80053; 85027; 86850; 86900; 86901; 88304; 88305; 93005; J7120; J2405

== ENCOUNTER → 2020-09-26 | Outpatient (CLI) | payer MEDICARE, MEDICAID, SELFPAY ==
[2020-09-26 09:42] VITALS: BMI 42.0
== END | disposition home or self-care (01) ==
LOC: LABSPEC 13:11
PROVIDERS: PCP Family Medicine; Referring Provider Obstetrics & Gynecology; Visit Provider Obstetrics & Gynecology
DX: N30.00 Acute cystitis without hematuria (principal)
CPT/HCPCS: 87086; 87088; 87186

== ENCOUNTER → 2020-12-14 | Outpatient (CLI) | payer MEDICARE, MEDICAID, SELFPAY ==
[2020-12-14 14:39] VITALS: BMI 42.0
[2020-12-14 15:21] LABS: Mucous, Urine 0 SEEN /hpf (<or=2+)
[2020-12-14 16:40] LABS: Color, Urine Yellow (Yellow); Glucose, Dipstick Normal (Normal); Ketone-Dipstick 5 mg/dl (Negative); Leukocyte Esterase-Dipstick 500 /ul (Negative); Nitrite-Dipstick Positive (Negative); Occult Blood-Urine 50 /ul (Negative); Protein-Dipstick 15 mg/dl (Negative); Urine Bilirubin Dipstick Negative (Negative); Urine Clarity Sl. Cloudy (Clear); Urine Urobilinogen Normal (Normal)
[2020-12-14 16:48] LABS: Bacteria 4+ /hpf (None Seen); Red Blood Cells-Urine 0-5 SEEN /hpf (0-5); Squamous Epithelial Cells - UA 0-5 SEEN /hpf (5-10); White Blood Cells 10-25 SEEN /hpf (0-5)
== END | disposition home or self-care (01) ==
LOC: LABSPEC 15:20
PROVIDERS: PCP Family Medicine; Referring Provider Family Medicine; Visit Provider Family Medicine
DX: N30.00 Acute cystitis without hematuria (principal)
CPT/HCPCS: 81001; 87077; 87086; 87088; 87186

== ENCOUNTER → 2021-02-15 | Outpatient (CLI) | payer MEDICARE, MEDICAID, SELFPAY | END | disposition home or self-care (01) | LOC: LABSPEC 16:00 | PROVIDERS: PCP Family Medicine; Referring Provider Family Medicine; Visit Provider Family Medicine | DX: J18.9 Pneumonia, unspecified organism (principal) | CPT/HCPCS: 87635; U0005; U0003 ==

== ENCOUNTER 2021-02-23 14:43 | Emergency (ER) | payer MEDICARE, MEDICAID, SELFPAY ==
[2021-02-23 14:43] VITALS: BP 143/94; PULSE 74; RESP 16; TEMP 36.5; O2SAT 98; BMI 39.2
[2021-02-23 15:08] VITALS: O2SAT 98
--- NOTE | 2021-02-23 15:22 | RAD_ITS ---
STUDY: X-RAY CHEST REASON FOR EXAM: Female, 75 years old. dyspnea TECHNIQUE: AP COMPARISON: None. FINDINGS: EKG leads project over the chest. The lungs are clear and expanded. There is no demonstrated pleural abnormality. Normal size heart. Normal mediastinum and christina. Normal visualized pulmonary arteries. There is atherosclerotic calcification of the aortic arch with tortuosity. No acute bony process. There is no demonstrated abnormality of the visualized soft tissue structures of the upper abdomen. RAD/Chest 1 View (Portable) IMPRESSION: Nonacute portable x-ray examination of the chest. Electronically Signed: Dalton Gauthier MD ([place]) at 16:27 EDT , Service support ,
--- NOTE | 2021-02-23 15:22 | EKG12_ITS ---
Test Reason : Blood Pressure : / mmHG Vent. Rate : 072 BPM Atrial Rate : 072 BPM P-R Int : 138 ms QRS Dur : 092 ms QT Int : 418 ms P-R-T Axes : 026 -23 013 degrees QTc Int : 457 ms Normal sinus rhythm with sinus arrhythmia Normal ECG Confirmed by KELLY MIGUEL, ANDREA ([id number]), newspaper or periodical editor JAGDISH DONG ([id number]) on 02/27/2021 7:59:15 AM Referred By: BRAD Confirmed By:ANDREA MENDOZA MD
--- NOTE | 2021-02-23 15:29 | ED.VIS.DYS ---
HPI History of Present Illness Chief Complaint: Shortness of Breath Detail of Chief Complaint: Shortness of breath for the last 2 months Informant: patient Narrative Narrative: Patient presents to the emergency department complaint of shortness of breath for last 2 months. Patient states that she went to the [facility] February 02 and had a negative Covid test but had a CT scan and they told her she had pneumonia. Patient was started on antibiotics and discharge. Patient states that she continues to cough. Patient seen her primary care physician and the nurse practitioner for the primary care physician and is currently on round 4 of antibiotics. Patient states that yesterday she coughed up 2 large blood clots. Patient having intermittent blood-tinged sputum. Patient states that her kids then made her come in and get evaluated. Patient is not currently anticoagulated. Patient has not had any fevers. She denies any chest pain. [facility] Medical History Back pain Back problem Frequent UTI Heart disease High blood pressure High cholesterol High triglycerides Hyperlipidemia Hypertension Non-ST elevation (NSTEMI) myocardial infarction Obesity Obstructive sleep apnea Osteoarthritis Postmenopausal bleeding Rheumatoid arthritis Type 2 diabetes mellitus without complications Home Medications fentanyl 25 mcg/hr transdermal patch 1 patch TRANSDERMAL Q72H 09/26/17 [History Last Taken Unknown] hydrocodone 7.5 mg-acetaminophen 325 mg tablet 1 tab PO TID PRN tab 09/26/17 [History Last Taken Unknown] multivitamin 1 tab PO QAM 09/26/17 [History Last Taken Unknown] tizanidine 4 mg capsule 4 mg PO TID PRN 09/26/17 [History Last Taken Unknown] cholecalciferol (vitamin D3) 125 mcg (5,000 unit) capsule 5,000 unit PO QDAY 10/01/17 [History Last Taken Unknown] melatonin 5 mg capsule 10 mg PO QHS cap 03/31/18 [History Last Taken Unknown] fluorometholone 0.1 % eye drops,suspension 1 drp OPHTHALMIC Q12H ml 03/11/19 [History Last Taken Unknown] gabapentin 300 mg capsule 300 mg PO TID 03/11/19 [History Last Taken Unknown] lidocaine 1 each TP PRN PRN 09/06/20 [History Last Taken Unknown] lifitegrast 1 drp EACH EYE BID 09/06/20 [History Last Taken Unknown] polyethylene glycol 400 1 drp OP PRN PRN 09/06/20 [History Last Taken Unknown] potassium chloride 10 mEq tablet,extended release 10 meq PO QDAY #90 tab 10/18/20 [Rx Last Taken Unknown] duloxetine 60 mg capsule,delayed release 120 mg PO QDAY #180 cap 11/01/20 [Rx Last Taken Unknown] cane #1 ea 12/14/20 [Rx Last Taken Unknown] fesoterodine 4 mg tablet,extended release 24 hr 4 mg PO DAILY tab 12/14/20 [History Last Taken Unknown] pravastatin 40 mg tablet 40 mg PO QHS #90 tab 12/22/20 [Rx Last Taken Unknown] furosemide 20 mg tablet 20 mg PO DAILY #90 tablet 02/08/21 [Rx Last Taken Unknown] verapamil 120 mg 24 hr capsule,extended release 120 mg PO QDAY #90 cap 02/08/21 [Rx Last Taken Unknown] albuterol sulfate 90 mcg/actuation aerosol inhaler 2 puff INHALATION Q4H PRN #8.5 g 02/22/21 [Rx Last Taken Unknown] cefpodoxime 200 mg tablet 200 mg PO BID #20 tab 02/22/21 [Rx Last Taken Unknown] doxycycline hyclate 100 mg tablet 100 mg PO BID #20 tab 02/22/21 [Rx Last Taken Unknown] methylprednisolone 4 mg tablets in a dose pack See Rx Instructions PO PER PKG DIR #21 tab 02/22/21 [Rx Last Taken Unknown] azithromycin 250 mg PO DAILY 02/23/21 [History Last Taken Unknown] doxycycline hyclate 100 mg PO BID 02/23/21 [History Last Taken Unknown] methylprednisolone 4 mg PO DAILY 02/23/21 [History Last Taken Unknown] Allergy/AdvReac Type Severity Reaction Status Date / Time pregabalin [From Lyrica] Allergy Severe Shortness Verified 02/23/21 14:46 of breath Steroids Allergy Intermediate Vomiting Uncoded 02/23/21 14:46 Family History Brother Alcohol abuse Myocardial infarction Father Angina pectoris Arthritis Myocardial infarction Heart disease Hypertension Mother Arthritis Surgical History H/O dilation and curettage History of bilateral cataract extraction History of cholecystectomy History of gastric bypass (~09/2013) History of tonsillectomy Social History Smoking Status: Smoker, status unknown tobacco type: cigarettes alcohol intake: never substance use type: does not use caffeine: Yes what type of physical activity do you participate in: none seatbelt use: always do you feel safe at home: Yes additional social history: - retired ROS ROS ED Constitutional Constitutional ED: Reports systems reviewed and no addt'l complaints, except as documented; Denies body ache(s), change in weight or chills Eyes Eyes: Denies acute decrease in peripheral vision, change in vision, double vision or loss of vision ENT ENT ED: Reports none; Denies ear pain, lip swelling, loss taste/smell, neck pain, otalgia or sore throat Cardiovascular Cardiovascular: Reports none; Denies abdominal pain, chest pain with activity, leg edema, lightheadedness, palpitations, rapid heart rate or syncope Respiratory/Chest Respiratory/Chest: Reports none, cough, dyspnea, sputum and other Details: Hemoptysis ; Denies change in mental status, dry cough, hemoptysis, shortness of breath at rest or shortness of breath with exertion Gastrointestinal Gastrointestinal: Reports none; Denies abdominal pain, change in stool character, diarrhea, hematemesis, hematochezia, melena, rectal bleeding or vomiting Genitourinary Genitourinary ED: Reports none; Denies abdominal discomfort, anuria, dysuria, genital pain or polyuria Musculoskeletal Musculoskeletal: Reports none; Denies arthralgias, back pain, difficulty walking, extremity pain, muscle weakness or myalgias Integumentary Reports none; Denies abscess or rash Neurologic Neurologic: Reports none; Denies abnormal gait, confusion, focal weakness, frequent falls, headache(s), loss of vision, numbness, paresthesias, radicular pain, vertigo or weakness Psychiatric Psychiatric: Reports systems reviewed and no addt'l complaints, except as documented and none; Denies behavioral changes, confusion, difficulty concentrating, hallucinations, suicidal ideation, tactile hallucinations or visual hallucinations Endocrine Endocrinology: Denies none, cold intolerance, excessive sweating, fatigue or heat intolerance Hematologic/Lymphatic Hematologic/Lymphatic: Reports none; Denies anemia, easy bleeding or easy bruising Allergic/Immunologic Allergic/Immunologic ED: Denies as per HPI, none, lip swelling, mouth swelling, throat swelling, tongue swelling or hives EXAM Physical Exam Const Vital Signs: 02/23/21 14:43 02/23/21 15:08 02/23/21 17:10 Temperature 97.7 F L Temperature Source Temporal Pulse Rate 74 79 Respiratory Rate 16 16 Respiratory Effort Normal Respiratory Depth Shallow Respiratory Pattern Irregular Blood Pressure 143/94 H 146/107 H Blood Pressure Mean 110 120 Pulse Ox 98 95 Oxygen Delivery Method Room Air Room Air Room Air Positive well nourished and well developed General Appearance ED: well developed and NAD HEENT Reports TM's clear and moist mucous membranes normocephalic and atraumatic; Negative for trauma or tenderness Tympanic Membrane ED: Yes TM's clear Eyes PERRL and EOMs intact bilaterally General Eye ED: Negative for pale conjunctiva or scleral icterus Neck no lymphadenopathy, supple and no JVD General: Negative for tenderness Chest Wall inspection of chest normal and palpation of chest normal Chest: Negative for tenderness Resp normal respiratory effort and clear to auscultation bilaterally Resp Narrative: Good aeration laterally. Patient has slightly decreased breath sounds bilateral lower lobes. No accessory muscle use or retractions. Effort and Inspection: Negative for respiratory distress or pain with movement Auscultation: Negative for rhonchi, wheezes or diminished lung sounds Cardio regular rate, regular rhythm, S1 normal heart sound, S2 normal heart sound and no murmurs Peripheral Pulses: pulses 2+ throughout GI normal to inspection, nondistended, normoactive bowel sounds, soft to palpation, non-tender, non-distended and no masses Back/Spine no CVA tenderness and no thoracic nor lumbar tenderness Extremity normal to inspection General Extremety ED: Negative for edema General Extremity: Negative for edema Neuro oriented x3, CN's II-XII intact bilaterally, no sensory deficits noted and gait normal Sensorium / Orientation: awake, alert, oriented to person, oriented to place and oriented to time Motor Exam: strength 5/5 throughout and strength abnormal Psych mental status grossly normal Skin no rashes or lesions noted and no wounds MDM MDM MDM Narrative Medical decision making narrative: IV line established on arrival. Patient placed on a event specialist product demonstrator. Patient D-dimer therefore CTA of the chest was ordered and results will be pending. Care of patient turned over to evening physician awaiting final results of CTA. If CT is unremarkable I feel patient can likely be discharged to home to follow-up with pulmonology. Lab Data Attestation: I reviewed the patient's lab results. Labs: Laboratory Results - last 24 hr 02/23/21 02/23/21 02/23/21 15:45 15:45 15:45 WBC 12.1 H RBC 4.36 Hgb 13.3 Hct 41.3 MCV 94.7 MCH 30.5 MCHC 32.2 RDW Std Deviation 41.7 RDW Coeff of Adrianna 11.9 Plt Count 444 MPV 10.5 Immature Gran % (Auto) 0.600 Neut % (Auto) 85.6 H Lymph % (Auto) 6.5 L [place] % (Auto) 7.1 Eos % (Auto) 0.0 Baso % (Auto) 0.2 Absolute Neuts (auto) 10.4 H Absolute Lymphs (auto) 0.79 L Nucleated RBC % 0 D-Dimer Quant (PE/DVT) 6.07 H* Sodium 141 Potassium 3.8 Chloride 103 Carbon Dioxide 30.0 Anion Gap 8 BUN 24 H Creatinine 0.66 Estim Creat Clear Calc 40.21 Est GFR (MDRD) Af Amer 112 Est GFR (MDRD) Non-Af 92 BUN/Creatinine Ratio 36.3 H Glucose 138 H Lactic Acid Calcium 9.7 Troponin I High Sens 20 B-Natriuretic Peptide 02/23/21 02/23/21 15:45 15:46 WBC RBC Hgb Hct MCV MCH MCHC RDW Std Deviation RDW Coeff of Adrianna Plt Count MPV Immature Gran % (Auto) Neut % (Auto) Lymph % (Auto) [place] % (Auto) Eos % (Auto) Baso % (Auto) Absolute Neuts (auto) Absolute Lymphs (auto) Nucleated RBC % D-Dimer Quant (PE/DVT) Sodium Potassium Chloride Carbon Dioxide Anion Gap BUN Creatinine Estim Creat Clear Calc Est GFR (MDRD) Af Amer Est GFR (MDRD) Non-Af BUN/Creatinine Ratio Glucose Lactic Acid 2.0 Calcium Troponin I High Sens B-Natriuretic Peptide 213.6 H Radiography Chest X-Ray - ED: 1 View Diagnostic Testing: Radiology Impression Chest X-Ray 02/23/21 15:22 IMPRESSION: Nonacute portable x-ray examination of the chest. Electronically Signed: Dalton Gauthier MD ([place]) at 16:27 EDT , Service support , 1 view chest x-ray obtained interpreted by myself as no acute disease process. EKG Initial EKG: Attestation: I personally reviewed and interpreted this EKG as follows: Comments: Sinus rhythm with no acute ST segment changes Discharge Plan Triage Chief Complaint: Shortness of Breath ED Provider: Shaan Carlisle Dx/Rx/DC Orders Prescriptions: No Action tizanidine 4 mg capsule 4 mg PO TID PRN (Reason: muscle pain) RF: 0 fentanyl 25 mcg/hr patch 72 hour 1 patch transdermal Q72H RF: 0 hydrocodone-acetaminophen 7.5-325 mg tablet 1 tab PO TID PRN (Reason: Pain 1-10 Or Fever) RF: 0 multivitamin [Daily Multi-Vitamin] tablet 1 tab PO QAM RF: 0 cholecalciferol (vitamin D3) 5,000 unit capsule 5,000 unit PO QDAY RF: 0 melatonin 5 mg capsule 10 mg PO QHS RF: 0 gabapentin 300 mg capsule 300 mg PO TID RF: 0 fluorometholone 0.1 % drops,suspension 1 drp OPHTHALMIC Q12H RF: 0 (DME) cane See Rx Instructions .Route .MEDSUPPLY Qty: 1 RF: 0 methylprednisolone [Medrol ([place])] 4 mg tablets,dose pack See Rx Instructions PO PER PKG DIR Qty: 21 RF: 0 albuterol sulfate 90 mcg/actuation HFA aerosol inhaler 2 puff inhalation Q4H PRN (Reason: shortness of breath or wheezing) Qty: 8.5 RF: 0 cefpodoxime 200 mg tablet 200 mg PO BID Qty: 20 RF: 0 doxycycline hyclate 100 mg tablet 100 mg PO BID Qty: 20 RF: 0 lidocaine 1 EACH adhesive patch,medicated 1 each TP PRN PRN (Reason: Pain 1-10 Or Fever) RF: 0 lifitegrast 1 EACH dropperette 1 drp EACH EYE BID RF: 0 polyethylene glycol 400 10 ML drops 1 drp OP PRN PRN (Reason: Dry Eye) RF: 0 fesoterodine 4 mg tablet extended release 24 hr 4 mg PO DAILY RF: 0 doxycycline hyclate 100 mg capsule 100 mg PO BID RF: 0 azithromycin 250 mg tablet 250 mg PO DAILY RF: 0 methylprednisolone 4 mg tablets,dose pack 4 mg PO DAILY RF: 0 potassium chloride 10 mEq tablet extended release 10 meq PO QDAY Qty: 90 RF: 2 duloxetine 60 mg capsule,delayed release(DR/EC) 120 mg PO QDAY Qty: 180 RF: 1 pravastatin 40 mg tablet 40 mg PO QHS Qty: 90 RF: 1 furosemide 20 mg tablet 20 mg PO DAILY Qty: 90 RF: 1 verapamil 120 mg capsule,ext rel. pellets 24 hr 120 mg PO QDAY Qty: 90 RF: 2 Primary Care Provider: Jose Russell
[2021-02-23] MEDS: 0.9% Normal Saline 1,000 ML 150 ML IV (15:57)
[2021-02-23 16:20] LABS: Absolute Lymphocyte Count 0.79 X10^3/uL (0.83-4.51); Absolute Neutrophil Count 10.4 X10^3/uL (2.0-7.7); Basophil# 0.03 X10^3/uL; Basophil% 0.2 % (0-1); Hematocrit 41.3 % (37-47); Hemoglobin 13.3 g/dL (12.0-15.0); Lymphocyte # 0.79 X10^3/ul (0.83-4.51); Lymphocyte % 6.5 % (19-41); Mean Corp Hgb Conc 32.2 g/dL (32-36); Mean Corpuscular Hgb 30.5 pg (27.0-32.0); Mean Corpuscular Volume 94.7 fL (81-99); Mean Platelet Vol. 10.5 fl (6.2-12.0); Monocyte# 0.86 X10^3/uL; Monocyte% 7.1 % (0-10); NRBC Flagged by Analyzer 0 % (0-5); Neutrophil # 10.38 X10^3/uL (2.7-7.7); Neutrophil % 85.6 % (47-70); Platelet Count 444 K/mm3 (150-450); RBC Distribution Width CV 11.9 % (11.6-14.6); RBC Distribution Width SD 41.7 fl (35.1-43.9); Red Blood Count 4.36 M/mm3 (4.2-5.4); White Blood Count 12.1 K/mm3 (4.4-11.0)
[2021-02-23 16:39] LABS: Anion Gap 8 (5-15); BUN 24 mg/dL (7-18); BUN/Creat Ratio 36.3 RATIO (10-20); Calcium,Total 9.7 mg/dL (8.5-10.1); Chloride 103 mmol/L (98-107); Creatinine, Serum 0.66 mg/dL (0.55-1.02); D-Dimer Quantitative (DVT/PE) 6.07 FEU/ug/m (0.27-0.49); EST Glomerular Filtration Rate 92 mL/min (>60); Est Glom Filt Rate - Afr Amer 112 mL/min (>60); Estimated Creatinine Clearance 40.21 ml/min; Glucose 138 mg/dL (74-106); Potassium 3.8 mmol/L (3.5-5.1); Sodium Level 141 mmol/L (136-145); Troponin-I HS 20 pg/mL (3.0-54.0)
--- NOTE | 2021-02-23 16:42 | CT_ITS ---
EXAM: CT ANGIOGRAPHY CHEST WITHOUT AND WITH INTRAVENOUS CONTRAST CLINICAL INDICATION: dyspnea, elevated d-dimer TECHNIQUE: Helically acquired angiography images were obtained of the chest without and with intravenous contrast. This CT exam was performed using one or more of the following dose reduction techniques: automated exposure control, adjustment of the mA and/or kV according to patient size, and/or use of iterative reconstruction technique. This report was created using Mingle360 report generation technology. MIP reconstructed images were created and reviewed. CONTRAST: IV 100mL [id number] COMPARISON: 12.06.06 FINDINGS: PULMONARY ARTERIES: No demonstrated pulmonary embolism or arterial dissection. AORTA: There are thoracic aortic calcifications consistent for atherosclerotic disease. There is no dissection or hematoma noted in the thoracic aorta. GREAT VESSELS OF AORTIC ARCH: Unremarkable. Normal in caliber. No evidence of dissection. LUNGS AND PLEURAL SPACES: There is bilateral pneumonia. There are bilateral pleural effusions. There is a right hilar masslike area. This measures 24 mm. This may be an infiltrate. It is difficult to exclude underlying neoplasm. Recommend repeat study once therapy is completed to exclude an underlying mass. Se2 IM: 164. HEART: There are coronary arterial calcifications. No pericardial effusion. No signs of right heart strain, ratio of right ventricle to left ventricle measures less than 1. MEDIASTINUM: Unremarkable. No mediastinal or hilar adenopathy. Esophagus is unremarkable. No hiatal hernia. THYROID: Unremarkable. No thyroid lesions. BONES/JOINTS: There are degenerative findings of the thoracic spine. No suspicious lytic or blastic abnormality. GALLBLADDER AND BILE DUCTS: The gallbladder is surgically absent. CT/CTA Chest W/WO Contrast IMPRESSION: 1. No demonstrated pulmonary embolism or arterial dissection. 2. There is bilateral pneumonia. 3. There are bilateral pleural effusions. 4. There is a right hilar masslike area. This measures 24 mm. This may be an infiltrate. It is difficult to exclude underlying neoplasm. Recommend repeat study once therapy is completed to exclude an underlying mass. Electronically Signed: Feroz Escalante MD at 17:58 EDT , Service support ,
[2021-02-23 16:44] LABS: BNP,B-Type NATRIURETIC PEPTIDE 213.6 pg/mL (0-100)
[2021-02-23 17:10] VITALS: BP 146/107; PULSE 79; RESP 16; O2SAT 95
[2021-02-23 18:17] VITALS: BP 159/91; PULSE 79; RESP 14; TEMP 37; O2SAT 95
[2021-02-23 20:31] LABS: Reflex Lactate? Y
== END 2021-02-23 18:29 | disposition home or self-care (01) ==
PROVIDERS: Emergency Provider Emergency Medicine; PCP Family Medicine
DX: R06.02 Shortness of breath (principal); F17.210 Nicotine dependence, cigarettes, uncomplicated; I25.2 Old myocardial infarction; G47.33 Obstructive sleep apnea (adult) (pediatric); E78.5 Hyperlipidemia, unspecified; E78.00 Pure hypercholesterolemia, unspecified; I10 Essential (primary) hypertension; Z79.899 Other long term (current) drug therapy; Z79.52 Long term (current) use of systemic steroids
CPT/HCPCS: 36415; 71045; 71275; 80048; 83605; 83880; 84484; 85025; 85379; 87040; 87070; 87205; 87633; 93005; 99284; J7030; Q9967

== ENCOUNTER → 2021-03-08 13:46 | Outpatient (CLI) | payer MEDICARE, MEDICAID, SELFPAY ==
[2021-03-08 15:02] LABS: Absolute Lymphocyte Count 1.43 X10^3/uL (0.83-4.51); Absolute Neutrophil Count 7.6 X10^3/uL (2.0-7.7); Basophil# 0.06 X10^3/uL; Basophil% 0.6 % (0-1); Eosinophil# 0.17 X10^3/uL; Eosinophils% 1.7 % (0-5); Hematocrit 43.1 % (37-47); Hemoglobin 13.4 g/dL (12.0-15.0); Lymphocyte # 1.43 X10^3/ul (0.83-4.51); Lymphocyte % 14.2 % (19-41); Mean Corp Hgb Conc 31.1 g/dL (32-36); Mean Corpuscular Hgb 30.2 pg (27.0-32.0); Mean Corpuscular Volume 97.1 fL (81-99); Mean Platelet Vol. 11.2 fl (6.2-12.0); Monocyte# 0.83 X10^3/uL; Monocyte% 8.2 % (0-10); NRBC Flagged by Analyzer 0 % (0-5); Neutrophil # 7.58 X10^3/uL (2.7-7.7); Neutrophil % 75.1 % (47-70); Platelet Count 320 K/mm3 (150-450); RBC Distribution Width CV 12.7 % (11.6-14.6); RBC Distribution Width SD 45.5 fl (35.1-43.9); Red Blood Count 4.44 M/mm3 (4.2-5.4); White Blood Count 10.1 K/mm3 (4.4-11.0)
[2021-03-08 15:20] LABS: Anion Gap 7 (5-15); BUN 20 mg/dL (7-18); BUN/Creat Ratio 29.5 RATIO (10-20); Calcium,Total 9.2 mg/dL (8.5-10.1); Chloride 100 mmol/L (98-107); Creatinine, Serum 0.68 mg/dL (0.55-1.02); EST Glomerular Filtration Rate 90 mL/min (>60); Est Glom Filt Rate - Afr Amer 109 mL/min (>60); Glucose 123 mg/dL (74-106); Potassium 3.8 mmol/L (3.5-5.1); Sodium Level 139 mmol/L (136-145)
== END ==
PROVIDERS: PCP Family Medicine; Referring Provider Nurse Practitioner Family; Visit Provider Nurse Practitioner Family
DX: J90 Pleural effusion, not elsewhere classified (principal); J18.9 Pneumonia, unspecified organism; I10 Essential (primary) hypertension; R93.89 Abnormal findings on diagnostic imaging of other specified body structures
CPT/HCPCS: 36415; 80048; 85025

== ENCOUNTER 2021-03-14 21:44 | Emergency (ER) | payer MEDICARE, MEDICAID, SELFPAY ==
[2021-03-14 21:45] VITALS: BP 154/112; PULSE 106; RESP 18; TEMP 37.4; O2SAT 97; BMI 38.9
--- NOTE | 2021-03-14 21:51 | RAD_ITS ---
STUDY: X-RAY CHEST REASON FOR EXAM: Female, 75 years old. Chest pain TECHNIQUE: Portable, upright, AP chest radiograph COMPARISON: 02/23/2021 FINDINGS: The lungs are clear and expanded. There is no demonstrated pleural abnormality. Normal size heart. Normal mediastinum and christina. Normal visualized pulmonary arteries. There is atherosclerotic calcification of the aortic arch with tortuosity. There is no demonstrated abnormality of the visualized soft tissue structures of the upper abdomen. RAD/Chest 1 View (Portable) IMPRESSION: No acute abnormal cardiopulmonary finding. Electronically Signed: Mehran Kenney MD at 22:56 EDT Tel , Service support ,
--- NOTE | 2021-03-14 21:51 | EKG12_ITS ---
Test Reason : CP Blood Pressure : / mmHG Vent. Rate : 105 BPM Atrial Rate : 105 BPM P-R Int : 126 ms QRS Dur : 082 ms QT Int : 328 ms P-R-T Axes : 003 -37 029 degrees QTc Int : 433 ms Sinus tachycardia Left axis deviation Abnormal ECG Confirmed by DEVENDRA MIGUEL, ERNESTINA ([id number]), news assignment editor JAGDISH DONG ([id number]) on 03/16/2021 1:46:39 P M Referred By: WON Confirmed By:DORCAS RAMSAY MD
[2021-03-14 22:05] LABS: Absolute Lymphocyte Count 1.19 X10^3/uL (0.83-4.51); Absolute Neutrophil Count 5.9 X10^3/uL (2.0-7.7); Basophil# 0.05 X10^3/uL; Basophil% 0.6 % (0-1); Eosinophil# 0.28 X10^3/uL; Eosinophils% 3.4 % (0-5); Hematocrit 40.3 % (37-47); Hemoglobin 12.9 g/dL (12.0-15.0); Lymphocyte # 1.19 X10^3/ul (0.83-4.51); Lymphocyte % 14.4 % (19-41); Mean Corpuscular Hgb 30.1 pg (27.0-32.0); Mean Corpuscular Volume 94.2 fL (81-99); Monocyte# 0.82 X10^3/uL; Monocyte% 9.9 % (0-10); NRBC Flagged by Analyzer 0 % (0-5); Neutrophil # 5.94 X10^3/uL (2.7-7.7); Neutrophil % 71.6 % (47-70); Platelet Count 327 K/mm3 (150-450); RBC Distribution Width CV 12.6 % (11.6-14.6); RBC Distribution Width SD 43.6 fl (35.1-43.9); Red Blood Count 4.28 M/mm3 (4.2-5.4); White Blood Count 8.3 K/mm3 (4.4-11.0)
[2021-03-14 22:15] VITALS: BP 139/85; PULSE 98; RESP 18; TEMP 37.7; O2SAT 96
[2021-03-14] MEDS: Aspirin 81 MG TAB.CHEW 324 MG PO (22:20)
--- NOTE | 2021-03-14 22:34 | ED.VIS.CHEST ---
HPI History of Present Illness Chief Complaint: Chest Pain Informant: patient Onset/Context/Timing Onset: Days (3) Activity at onset: gradual Timing: Waxes and wanes Quality: Positive for Sharp Location: Left Chest Worsened By: Coughing Relieved By: Nothing Associated Symptoms: Positive for Diaphoresis, Dyspnea, Cough, Fever and Lightheadedness; Negative for Nausea, Vomiting, Acid Reflux and Palpitations Narrative Narrative: Patient presents with chest pain that has been getting worse over the past 3 days. Patient states she has had a cough since early January. Patient states she has been on 4 different courses of antibiotics for pneumonia. Patient states her pain waxes and wanes. Patient states it is over the left upper chest. Patient states it is sharp. Patient states it is worse with coughing. Patient states nothing seems to help with it. Patient admits to some shortness of breath and diaphoresis with the pain. Patient admits to subjective fevers but when she took her temperature it was normal. Patient also admits to some lightheadedness. Patient states her pain radiates to her left shoulder and left scapular area. CVD Risk Factors: Positive for Hypertension and Hypercholesterolemia; Negative for Diabetes, Family History 1' </=55 and Smoking PE Risk Factors: Negative for Recent Travel/Surgery, Recent Immobilization, Prior DVT or PE, Cancer and OCP + Smoking + >/=35 PFSH PFSH Medical History Back pain Back problem Frequent UTI Heart disease High blood pressure High cholesterol High triglycerides Hyperlipidemia Hypertension Non-ST elevation (NSTEMI) myocardial infarction Obesity Obstructive sleep apnea Osteoarthritis Postmenopausal bleeding Rheumatoid arthritis Type 2 diabetes mellitus without complications Home Medications fentanyl 25 mcg/hr transdermal patch 1 patch TRANSDERMAL Q72H 09/26/17 [History Last Taken 02/23/21] hydrocodone 7.5 mg-acetaminophen 325 mg tablet 1 tab PO TID PRN tab 09/26/17 [History Last Taken 02/23/21] multivitamin 1 tab PO QAM 09/26/17 [History Last Taken 2 Weeks Ago ~02/09/21] tizanidine 4 mg capsule 4 mg PO BID 09/26/17 [History Last Taken 02/23/21] cholecalciferol (vitamin D3) 125 mcg (5,000 unit) capsule 5,000 unit PO DAILY 10/01/17 [History Last Taken 2 Weeks Ago ~02/09/21] fluorometholone 0.1 % eye drops,suspension 1 drp OPHTHALMIC Q12H ml 03/11/19 [History Last Taken 02/22/21] gabapentin 300 mg capsule 600 mg PO QHS 03/11/19 [History Last Taken 02/22/21] lidocaine 1 each TP PRN PRN 09/06/20 [History Last Taken Unknown] lifitegrast 1 drp EACH EYE BID 09/06/20 [History Last Taken 02/23/21] polyethylene glycol 400 1 drp OP DAILY PRN PRN 09/06/20 [History Last Taken 02/22/21] duloxetine 60 mg capsule,delayed release 120 mg PO QDAY #180 cap 11/01/20 [Rx Last Taken 02/23/21] fesoterodine 4 mg tablet,extended release 24 hr 4 mg PO DAILY tab 12/14/20 [History Last Taken 2 Weeks Ago ~02/09/21] pravastatin 40 mg tablet 40 mg PO QHS #90 tab 12/22/20 [Rx Last Taken 02/22/21] furosemide 20 mg tablet 20 mg PO DAILY #90 tablet 02/08/21 [Rx Last Taken 02/23/21] albuterol sulfate 90 mcg/actuation aerosol inhaler 2 puff INHALATION Q4H PRN #8.5 g 02/22/21 [Rx Last Taken 02/22/21] cefpodoxime 200 mg tablet 200 mg PO BID #20 tab 02/22/21 [Rx Last Taken Unknown] gabapentin 300 mg PO DAILY 02/23/21 [History Last Taken 02/23/21] melatonin 10 mg PO QHS 02/23/21 [History Last Taken 02/22/21] potassium chloride 10 meq PO DAILY 02/23/21 [History Last Taken 02/23/21] verapamil 120 mg PO DAILY 02/23/21 [History Last Taken 02/23/21] dextromethorphan-guaifenesin ER 60 mg-1,200 mg tab,extend release,12hr 1 tab PO Q12H PRN #30 tab 03/01/21 [Rx Last Taken Unknown] Allergy/AdvReac Type Severity Reaction Status Date / Time pregabalin [From Lyrica] Allergy Severe Shortness Verified 03/14/21 21:45 of breath Steroids Allergy Intermediate Vomiting Uncoded 03/14/21 21:45 Family History Brother Alcohol abuse Myocardial infarction Father Angina pectoris Arthritis Myocardial infarction Heart disease Hypertension Mother Arthritis Surgical History H/O dilation and curettage History of bilateral cataract extraction History of cholecystectomy History of gastric bypass (~09/2013) History of tonsillectomy Social History Smoking Status: Former smoker pack-years: 10 alcohol intake: never substance use type: does not use caffeine: Yes what type of physical activity do you participate in: none seatbelt use: always do you feel safe at home: Yes additional social history: - retired ROS ROS ED Constitutional Constitutional ED: Denies chills or fever(s) Eyes Eyes: Denies blurry vision or change in vision ENT ENT ED: Denies rhinorrhea or sore throat Cardiovascular Cardiovascular: Reports chest pain; Denies palpitations Respiratory/Chest Respiratory/Chest: Reports cough, dyspnea and sputum Gastrointestinal Gastrointestinal: Denies abdominal pain, nausea or vomiting Genitourinary Genitourinary ED: Denies dysuria or hematuria Musculoskeletal Musculoskeletal: Reports back pain; Denies neck pain Integumentary Denies abscess or rash Neurologic Neurologic: Reports headache(s); Denies weakness Allergic/Immunologic Allergic/Immunologic ED: Denies mouth swelling or urticaria EXAM Physical Exam Const Vital Signs: 03/14/21 21:45 03/14/21 22:15 03/14/21 23:03 Temperature 99.4 F H 99.8 F H Temperature Source Temporal Oral Pulse Rate 106 H 98 95 Respiratory Rate 18 18 17 Respiratory Effort Short of Breath Respiratory Pattern Normal Blood Pressure 154/112 H 139/85 H 129/81 H Blood Pressure Mean 126 103 97 Pulse Ox 97 96 94 Oxygen Delivery Method Room Air Room Air Room Air 03/15/21 01:58 03/15/21 03:21 Temperature Temperature Source Pulse Rate 90 83 Respiratory Rate 16 18 Respiratory Effort Respiratory Pattern Blood Pressure 134/71 H 119/69 Blood Pressure Mean 92 Pulse Ox 93 92 Oxygen Delivery Method Room Air Positive well nourished, well developed and obese General Appearance ED: well developed Nutritional Appearance: obese HEENT normocephalic and atraumatic Eyes PERRL and EOMs intact bilaterally Neck supple and no JVD Chest Wall Chest: tenderness pectoral muscle (Left upper chest) left Resp normal respiratory effort and clear to auscultation bilaterally Effort and Inspection: Negative for respiratory distress Cardio regular rate, regular rhythm and no murmurs GI normal to inspection, nondistended, normoactive bowel sounds, soft to palpation and non-distended GI Narrative: There is some mild midline tenderness. There is no rebound or guarding noted. Extremity normal to inspection General Extremety ED: Negative for edema or tenderness General Extremity: Negative for edema Neuro oriented x3, CN's II-XII intact bilaterally and no sensory deficits noted Sensorium / Orientation: awake and alert Motor Exam: strength 5/5 throughout Psych mental status grossly normal Heart Score History: Slightly/Non-Suspicious ECG: Normal Age: >/= 65 years Risk Factors: 1 or 2 Risk Factors Troponin: </= Normal Limit Score: 3 MDM MDM MDM Narrative Medical decision making narrative: Patient was given aspirin and nitroglycerin here. EKG was obtained. On my interpretation, it shows a sinus tachycardia with a rate of 105. MI interval QRS interval and QTc intervals were all normal. There is left axis deviation at -37. There are no acute ST or T wave changes. Portable 1 view chest x-ray was obtained. On my interpretation, lung david are clear. There is normal cardiac silhouette. Bony thorax is normal. There is no acute process noted. Radiologist also interpreted the x-ray and agrees. CBC and basic metabolic profile were obtained and were essentially within normal limits. High-sensitivity troponin was obtained and was normal. COVID-19 PCR was obtained because of the duration of symptoms and was negative. 2-hour repeat high-sensitivity troponin was obtained and was negative. Patient has a HEART score of 3. Patient was advised that this is low risk for acute cardiac event. Patient was instructed to follow-up with her primary care physician in 5 to 7 days. Patient understood and was agreeable with the plan. All questions were answered. Lab Data Labs: Laboratory Results - last 24 hr 03/14/21 03/14/21 03/14/21 21:59 21:59 23:04 WBC 8.3 RBC 4.28 Hgb 12.9 Hct 40.3 MCV 94.2 MCH 30.1 MCHC 32.0 RDW Std Deviation 43.6 RDW Coeff of Adrianna 12.6 Plt Count 327 MPV 10.0 Immature Gran % (Auto) 0.100 Neut % (Auto) 71.6 H Lymph % (Auto) 14.4 L Mcdonough % (Auto) 9.9 Eos % (Auto) 3.4 Baso % (Auto) 0.6 Absolute Neuts (auto) 5.9 Absolute Lymphs (auto) 1.19 Nucleated RBC % 0 Sodium 134 L Potassium 3.8 Chloride 97 L Carbon Dioxide 30.0 Anion Gap 7 BUN 16 Creatinine 0.75 Estim Creat Clear Calc 40.21 Est GFR (MDRD) Af Amer 96 Est GFR (MDRD) Non-Af 80 BUN/Creatinine Ratio 21.2 H Glucose 128 H Calcium 9.2 Troponin I High Sens 17 COVID-19 ([place]) Negative 03/15/21 00:07 WBC RBC Hgb Hct MCV MCH MCHC RDW Std Deviation RDW Coeff of Adrianna Plt Count MPV Immature Gran % (Auto) Neut % (Auto) Lymph % (Auto) Mcdonough % (Auto) Eos % (Auto) Baso % (Auto) Absolute Neuts (auto) Absolute Lymphs (auto) Nucleated RBC % Sodium Potassium Chloride Carbon Dioxide Anion Gap BUN Creatinine Estim Creat Clear Calc Est GFR (MDRD) Af Amer Est GFR (MDRD) Non-Af BUN/Creatinine Ratio Glucose Calcium Troponin I High Sens 19 COVID-19 ([place]) Radiography Chest X-Ray - ED: 1 View, Read by ED Physician, Read by Radiologist and Normal Diagnostic Testing: Clinical Impression(s) from Imaging Studies Chest X-Ray 03/14/21 21:51 IMPRESSION: No acute abnormal cardiopulmonary finding. Electronically Signed: Mehran Kenney MD at 22:56 EDT Tel , Service support , EKG Initial EKG: Attestation: I personally reviewed and interpreted this EKG as follows: Interpretation: No Acute Injury Pattern and Sinus Tachycardia (105) Comments: Left axis deviation Discharge Plan Triage Chief Complaint: Chest Pain ED Provider: Piyush Glover Dx/Rx/DC Orders Clinical Impression: Chest pain of uncertain etiology Instructions: ED Chest Pain, Uncertain Cause Prescriptions: No Action tizanidine 4 mg capsule 4 mg PO BID RF: 0 fentanyl 25 mcg/hr patch 72 hour 1 patch transdermal Q72H RF: 0 hydrocodone-acetaminophen 7.5-325 mg tablet 1 tab PO TID PRN (Reason: Pain 1-10 Or Fever) RF: 0 multivitamin [Daily Multi-Vitamin] tablet 1 tab PO QAM RF: 0 cholecalciferol (vitamin D3) 5,000 unit capsule 5,000 unit PO DAILY RF: 0 gabapentin 300 mg capsule 600 mg PO QHS RF: 0 fluorometholone 0.1 % drops,suspension 1 drp OPHTHALMIC Q12H RF: 0 albuterol sulfate 90 mcg/actuation HFA aerosol inhaler 2 puff inhalation Q4H PRN (Reason: shortness of breath or wheezing) Qty: 8.5 RF: 0 cefpodoxime 200 mg tablet 200 mg PO BID Qty: 20 RF: 0 dextromethorphan-guaifenesin [Mucinex DM] 60-1,200 mg tablet extended release 12 hr 1 tab PO Q12H PRN (Reason: cough) Qty: 30 RF: 0 lidocaine 1 EACH adhesive patch,medicated 1 each TP PRN PRN (Reason: Pain 1-10 Or Fever) RF: 0 lifitegrast 1 EACH dropperette 1 drp EACH EYE BID RF: 0 polyethylene glycol 400 10 ML drops 1 drp OP DAILY PRN PRN (Reason: Dry Eye) RF: 0 fesoterodine 4 mg tablet extended release 24 hr 4 mg PO DAILY RF: 0 gabapentin 300 mg capsule 300 mg PO DAILY RF: 0 melatonin 10 mg Tablet 10 mg PO QHS RF: 0 potassium chloride 10 mEq tablet extended release 10 meq PO DAILY RF: 0 verapamil 120 mg capsule,ext rel. pellets 24 hr 120 mg PO DAILY RF: 0 duloxetine 60 mg capsule,delayed release(DR/EC) 120 mg PO QDAY Qty: 180 RF: 1 pravastatin 40 mg tablet 40 mg PO QHS Qty: 90 RF: 1 furosemide 20 mg tablet 20 mg PO DAILY Qty: 90 RF: 1 Primary Care Provider: Jose Russell Referrals: Jose Russell, [Primary Care Provider] - 3-5 Days Disposition Disposition: Home, Self Care Discharge Date/Time: 03/15/21 03:35
[2021-03-14 22:58] LABS: Anion Gap 7 (5-15); BUN 16 mg/dL (7-18); BUN/Creat Ratio 21.2 RATIO (10-20); Calcium,Total 9.2 mg/dL (8.5-10.1); Chloride 97 mmol/L (98-107); Creatinine, Serum 0.75 mg/dL (0.55-1.02); EST Glomerular Filtration Rate 80 mL/min (>60); Est Glom Filt Rate - Afr Amer 96 mL/min (>60); Estimated Creatinine Clearance 40.21 ml/min; Glucose 128 mg/dL (74-106); Potassium 3.8 mmol/L (3.5-5.1); Sodium Level 134 mmol/L (136-145); Troponin-I HS 17 pg/mL (3.0-54.0)
[2021-03-14 23:03] VITALS: BP 129/81; PULSE 95; RESP 17; O2SAT 94
[2021-03-15 00:11] LABS: Probe Check PASS; Specimen Processing Control PASS
[2021-03-15 00:33] LABS: Troponin-I HS 19 pg/mL (3.0-54.0)
[2021-03-15 01:58] VITALS: BP 134/71; PULSE 90; RESP 16; O2SAT 93
[2021-03-15 03:21] VITALS: BP 119/69; PULSE 83; RESP 18; O2SAT 92
== END 2021-03-15 03:35 | disposition home or self-care (01) ==
PROVIDERS: Emergency Provider Emergency Medicine; PCP Family Medicine
DX: R07.9 Chest pain, unspecified (principal); I10 Essential (primary) hypertension; I25.2 Old myocardial infarction; E78.00 Pure hypercholesterolemia, unspecified; M06.9 Rheumatoid arthritis, unspecified; E66.9 Obesity, unspecified; Z68.38 Body mass index [BMI] 38.0-38.9, adult; Z79.899 Other long term (current) drug therapy; Z87.891 Personal history of nicotine dependence
CPT/HCPCS: 71045; 80048; 84484; 85025; 87635; 93005; 99285; U0005; A4216; U0003

== ENCOUNTER → 2021-03-17 10:32 | Outpatient (CLI) | payer MEDICARE, MEDICAID, SELFPAY ==
--- NOTE | 2021-03-17 10:35 | ECHOCS_ITS ---
Version 2 Reason For Study: DYSPNEA/SOB Procedure This was a 2D Doppler, Color Flow transthoracic echocardiogram. The study was technically difficult. PT experiencing left hip pain, unable to lie in left lateral decubitus position for entire exam. Contrast injection was performed. Exam performed in department. Left Ventricle Normal LV size. Left ventricular systolic function is normal. The estimated ejection fraction is 60 %. Stage 1 diastolic dysfunction. No regional wall motion abnormalities noted. Right Ventricle Normal RV size. Normal systolic function. Atria Normal left atrium. Normal right atrium. Mitral Valve Normal mitral valve. Tricuspid Valve Normal tricuspid valve. Mild tricuspid valve insufficiency. Pulmonary artery systolic pressure is 34 mmHg. Aortic Valve Trisinus/trileaflet aortic valve. Pulmonic Valve The pulmonic valve is not well visualized. Great Vessels Normal aortic root. The pulmonary artery is normal size. Normal inferior vena cava. Pericardium/Pleural No pericardial effusion. Medication 22 gauge I.V. with prn adaptor inserted into right arm. Diluted definity 3.0ml given slow IV push to enhance endocardial definition. MMode/2D Measurements & Calculations LVIDd: 4.7 cm IVSd: 0.87 cm Ao root diam: 3.0 cm LVIDs: 3.1 cm LVPWd: 1.0 cm LA dimension: 3.2 cm RVDd: 3.2 cm FS: 34.8 % LAV(MOD-bp): 58.5 ml LA A4 area: 18.5 cm2 RA A4 area: 16.4 cm2 LAV(MOD-bp) Indexed: 29.0 ml/m2 LAV(MOD-sp2): 61.5 ml LAV(MOD-sp4): 53.9 ml Time Measurements MV dec time: 0.18 sec Doppler Measurements & Calculations MV E max noel: 50.3 cm/sec Lat Peak E' Noel: 7.6 cm/sec Med Peak E' Noel: 6.1 cm/sec MV A max noel: 79.6 cm/sec E/E' lat: 6.6 E/E' med: 8.3 MV E/A: 0.63 Ao V2 max: 135.8 cm/sec LV V1 max: 88.2 cm/sec PA V2 max: 104.8 cm/sec Ao max P.4 mmHg LV V1 max P.1 mmHg TR max noel: 269.2 cm/sec TR max P.0 mmHg ECHO/Echo Complete W/ Contrast Interpretation Summary Normal LV size. Left ventricular systolic function is normal. The estimated ejection fraction is 60 %. Stage 1 diastolic dysfunction. Contrast injection was performed. Ordering Physician: Kurtis Mccray Referring Physician: Jose Russell Performed By: Michelle Garcia RDCS, RVT
== END ==
PROVIDERS: PCP Family Medicine; Referring Provider Internal Medicine Critical Care Medicine; Visit Provider Internal Medicine Critical Care Medicine
DX: R06.02 Shortness of breath (principal); I25.2 Old myocardial infarction
CPT/HCPCS: 93306; Q9957; A4216; C8929; J3490

== ENCOUNTER → 2021-03-24 10:22 | Outpatient (CLI) | payer MEDICARE, MEDICAID, SELFPAY ==
--- NOTE | 2021-03-24 14:42 | PFTCOMP_ITS ---
COMPLETE PULMONARY FUNCTION TEST INTERPRETATION Brief HPI: Patient is a 75 year old female, currently under the care of myself, who presents to [facility] for complete pulmonary function tests secondary to diagnosis of dyspnea. Respiratory therapist reports good effort and reproducible results. Interpretation: Forced expiration spirometry shows no large airways obstructive ventilatory defect with an FEV1 of 78% predicted. There is no significant bronchodilator response by strict ATS criteria. Spirograms are of good quality and plateau normally. The respiratory flow volume loop shows a normal pattern. Lung volumes by body plethysmography show a normal total lung capacity at 3.86 L , 84% predicted. All other lung volumes are within normal limits. Diffusion capacity by carbon monoxide is decreased at 59% predicted. The airway resistance is normal. No previous pulmonary function tests were available for review. Impression: Isolated reduction in diffusion capacity consistent with a pulmonary vascular disorder.
== END ==
PROVIDERS: PCP Family Medicine; Referring Provider Internal Medicine Critical Care Medicine; Visit Provider Internal Medicine Critical Care Medicine
DX: R06.00 Dyspnea, unspecified (principal); I25.2 Old myocardial infarction
CPT/HCPCS: 94060; 94726; 94729

== ENCOUNTER → 2021-03-28 10:56 | Outpatient (CLI) | payer MEDICARE, MEDICAID, SELFPAY ==
[2021-03-28 11:27] VITALS: PULSE 69; PULSE 76; PULSE 91; PULSE 98; PULSE 99; O2SAT 92; O2SAT 93; O2SAT 95; O2SAT 97
--- NOTE | 2021-03-30 07:02 | PCM.PSN.6M ---
PSN 6 Minute Walk Test 6 Minute Walk Test 6 Minute Walk Test: 6 Minute Walk Test PSN:6-Minute Walk Test Start: 03/28/21 11:27 Freq: Status: Active Protocol: RESP.6MINW Document 03/28/21 11:27 PHILIP (Rec: 03/28/21 11:40 PHILIP [id number]) 6 Minute Walk Test Date Performed 03/28/21 Time Performed 11:15 Height 5 ft 3 in Weight: 99.79 kg Weight in Pounds 220.[address]: Kurtis Mccray Assistive device used: Cane Pre-test Oxygen Delivery Method Room Air Pulse Ox (%) 95 Pulse Rate (60-100 beats/min) 69 Dyspnea Zeb Scale (0-10) 0.5 Exertion Zeb Scale (6-20) 6 1st minute Oxygen Delivery Method Room Air Pulse Ox (%) 93 Pulse Rate (60-100 beats/min) 91 2nd minute Oxygen Delivery Method Room Air Pulse Ox (%) 92 Pulse Rate (60-100 beats/min) 98 3rd minute Oxygen Delivery Method Room Air Pulse Ox (%) 93 Pulse Rate (60-100 beats/min) 99 4th minute Oxygen Delivery Method Room Air Pulse Ox (%) 92 Pulse Rate (60-100 beats/min) 98 5th minute Oxygen Delivery Method Room Air Pulse Ox (%) 93 Pulse Rate (60-100 beats/min) 99 6th minute Oxygen Delivery Method Room Air Pulse Ox (%) 93 Pulse Rate (60-100 beats/min) 99 Dyspnea Zeb Scale (0-10) 3 Exertion Zeb Scale (6-20) 14 Post-test Oxygen Delivery Method Room Air Pulse Ox (%) 97 Pulse Rate (60-100 beats/min) 76 Full Laps Walked 12 Partial Lap, Number of Tiles Walked 0 Total Distance Walked (ft) 708 Interpretation Interpretation: The patient ambulated 708 feet over the course of 6 minutes beginning on room air without assistive devices or breaks. Pretesting oxygen saturation was noted to be 95% on room air. With ambulation, the amber oxygen saturation was 92%. There was no significant exertional oxygen desaturation. Recommendations Recommendations: There is no indication for the use of supplemental oxygen at this time.
== END ==
PROVIDERS: PCP Family Medicine; Referring Provider Internal Medicine Critical Care Medicine; Visit Provider Internal Medicine Critical Care Medicine
DX: R06.00 Dyspnea, unspecified (principal); I25.2 Old myocardial infarction
CPT/HCPCS: 94618

== ENCOUNTER → 2021-03-31 11:16 | Outpatient (CLI) | payer MEDICARE, MEDICAID, SELFPAY ==
--- NOTE | 2021-03-31 12:00 | RAD_ITS ---
STUDY: X-RAY CHEST REASON FOR EXAM: Female, 75 years old. Pneumonia. TECHNIQUE: PA and lateral views of the chest. COMPARISON: 03/14/2021. FINDINGS: The lungs are well expanded. No acute infiltrate or mass. There is minimal right pleural effusion. Normal size heart. Normal mediastinum and christina. Normal visualized pulmonary arteries. Normal visualized aortic arch and descending thoracic aorta. There are diffuse degenerative changes of the visualized thoracic spine. There is degenerative osteoarthritis of the bilateral shoulders. There is no demonstrated abnormality of the visualized soft tissue structures of the upper abdomen. RAD/Chest PA and Lateral IMPRESSION: Small right pleural effusion without other interval change. Electronically Signed: Antonio Berumen DO at 18:40 EDT Tel [phone], Service support ,
[2021-03-31 12:41] LABS: BNP,B-Type NATRIURETIC PEPTIDE 86.8 pg/mL (0-100)
[2021-03-31 12:45] LABS: Anion Gap 6 (5-15); BUN 16 mg/dL (7-18); BUN/Creat Ratio 24.3 RATIO (10-20); Calcium,Total 9.4 mg/dL (8.5-10.1); Chloride 98 mmol/L (98-107); Creatinine, Serum 0.66 mg/dL (0.55-1.02); EST Glomerular Filtration Rate 93 mL/min (>60); Est Glom Filt Rate - Afr Amer 113 mL/min (>60); Glucose 128 mg/dL (74-106); Potassium 3.5 mmol/L (3.5-5.1); Sodium Level 137 mmol/L (136-145)
== END ==
PROVIDERS: PCP Family Medicine; Referring Provider Nurse Practitioner Acute Care; Visit Provider Nurse Practitioner Acute Care
DX: R53.83 Other fatigue (principal); I25.2 Old myocardial infarction; J90 Pleural effusion, not elsewhere classified
CPT/HCPCS: 36415; 71046; 80048; 83880

== ENCOUNTER → 2021-04-03 | Outpatient (CLI) | payer MEDICARE, MEDICAID, SELFPAY | END | disposition home or self-care (01) | LOC: LABSPEC 09:43 | PROVIDERS: PCP Family Medicine; Referring Provider Nurse Practitioner Acute Care; Visit Provider Nurse Practitioner Acute Care | DX: J18.9 Pneumonia, unspecified organism (principal) | CPT/HCPCS: 87070; 87205 ==

== ENCOUNTER 2021-06-15 09:19 | Outpatient (CLI) | payer MEDICARE, MEDICAID, SELFPAY ==
--- NOTE | 2021-06-15 09:47 | RAD_ITS ---
STUDY: X-RAY CHEST REASON FOR EXAM: Female, 75 years old. Pleura effusion TECHNIQUE: PA and lateral views of the chest. COMPARISON: Comparison is made with prior study dated 03/31/2021. FINDINGS: The previously seen right basilar infiltrate has resolved. Minimal residual linear densities persist at the right lung base. Blunting of the right costophrenic angle. Normal size heart. Normal mediastinum and christina. Normal visualized pulmonary arteries. There is atherosclerotic tortuosity of the aortic arch and descending thoracic aorta. There are diffuse degenerative changes of the visualized thoracic spine. Normal visualized ribs, clavicles, and shoulders. Surgical clips are seen in the right upper quadrant. RAD/Chest PA and Lateral IMPRESSION: Mild residual increased markings at the right lung base although the infiltrate has resolved. Electronically Signed: Edward Espitia MD at 11:55 EST , Service support ,
[2021-06-15 11:38] LABS: Mucous, Urine 0 SEEN /hpf (<or=2+)
[2021-06-15 12:29] LABS: Color, Urine Yellow (Yellow); Glucose, Dipstick Normal (Normal); Ketone-Dipstick 5 mg/dl (Negative); Leukocyte Esterase-Dipstick 25 /ul (Negative); Nitrite-Dipstick Negative (Negative); Occult Blood-Urine 25 /ul (Negative); Protein-Dipstick 15 mg/dl (Negative); Urine Clarity Sl. Cloudy (Clear); Urine Urobilinogen 1 mg/dl (Normal)
[2021-06-15 12:30] LABS: Urine Bilirubin Dipstick 1 mg/dL (Negative)
[2021-06-15 12:38] LABS: Bacteria RARE /hpf (None Seen); Calcium Oxalate Crystals Ur 1+ /hpf (<or=2+); Red Blood Cells-Urine 0-5 SEEN /hpf (0-5); Squamous Epithelial Cells - UA 0-5 SEEN /hpf (5-10); White Blood Cells 0-5 SEEN /hpf (0-5)
[2021-06-15 12:44] LABS: Anion Gap 6 (5-15); BUN 18 mg/dL (7-18); BUN/Creat Ratio 24.2 RATIO (10-20); Calcium,Total 9.3 mg/dL (8.5-10.1); Chloride 105 mmol/L (98-107); Creatinine, Serum 0.74 mg/dL (0.55-1.02); EST Glomerular Filtration Rate 81 mL/min (>60); Est Glom Filt Rate - Afr Amer 98 mL/min (>60); Glucose 126 mg/dL (74-106); Sodium Level 141 mmol/L (136-145)
== END 2021-06-15 23:59 | disposition short-term general hospital (02) ==
PROVIDERS: PCP Family Medicine; Referring Provider Family Medicine; Visit Provider Family Medicine
DX: E11.9 Type 2 diabetes mellitus without complications (principal); J18.9 Pneumonia, unspecified organism; R30.0 Dysuria
CPT/HCPCS: 36415; 71046; 80048; 81001; 87086; 87088

== ENCOUNTER 2021-08-03 13:12 | Outpatient (CLI) | payer MEDICARE, MEDICAID, SELFPAY ==
--- NOTE | 2021-08-03 13:17 | CT_ITS ---
STUDY: CT CHEST WITH CONTRAST REASON FOR EXAM: Female, 75 years old. New-onset hemoptysis persists pneumonia in January 2021. History of congestive heart failure and hypertension. RADIATION DOSAGE (If Supplied By Facility): CTDIvol = ( 14.18 ) mGy, DLP = ( 625.26 ) mGycm TECHNIQUE: Transaxial imaging was performed following intravenous administration of IV 100mL Isovue-300. Multiplanar coronal and sagittal images were reformatted. Individualized dose optimization techniques were used for this CT. COMPARISON: Chest, 03/31/2021. CTA of the chest, 02/23/2021. FINDINGS: The lungs are well expanded. There is minimal pleural-based densities in the posterior right upper lobe. Adjacent 5 mm parenchymal nodule best seen on image 44 series 4. On the same image there are small nodular densities posteriorly in the left upper lobe. The largest measures 3 mm. There are linear densities with small nonacute foci posteriorly in the right lower lobe best seen on images 54 through 79. Image 84 there is no more 8 x 4 mm nodule in the right posterior costophrenic angle. Similar pleural-based nodular densities are seen in the left lower lobe There is no demonstrated pleural abnormality. Normal heart and pericardium. There are calcifications of the coronary arteries. Mild mediastinal lymphadenopathy. Normal hilar regions. Normal enhanced pulmonary arteries. Without atherosclerotic changes of the thoracic aorta without aneurysm or dissection. There are multi-level degenerative changes of the thoracic spine. There is no demonstrated abnormality of the visualized upper abdomen. CT/Chest WITH Contrast IMPRESSION: 1. Stable pulmonary nodules. There is resolution of small pleural effusions seen on the previous study is from a larger pleural-based consolidation in the right upper lobe. 2. No other major interval change. Electronically Signed: Antonio Berumen DO at 17:04 EST Reading Location ID and State: [address] [place] [address] Tel [phone], Service support ,
[2021-08-03 13:41] LABS: CREATININE FINGERSTICK 0.6 mg/dL (0.55-1.02); EGFR FINGERSTICK > 60.0000 mL/min (>60)
== END 2021-08-03 23:59 | disposition home or self-care (01) ==
LOC: CT 13:14
PROVIDERS: PCP Family Medicine; Referring Provider Internal Medicine Critical Care Medicine; Visit Provider Internal Medicine Critical Care Medicine
DX: R04.2 Hemoptysis (principal)
CPT/HCPCS: 71260; Q9967

== ENCOUNTER → 2021-09-20 | Outpatient (CLI) | payer MEDICARE, MEDICAID, SELFPAY ==
[2021-09-20 10:44] LABS: Absolute Lymphocyte Count 1.53 X10^3/uL (0.83-4.51); Absolute Neutrophil Count 6.3 X10^3/uL (2.0-7.7); Basophil# 0.05 X10^3/uL; Basophil% 0.6 % (0-1); Eosinophil# 0.26 X10^3/uL; Hematocrit 44.7 % (37-47); Hemoglobin 14.2 g/dL (12.0-15.0); Lymphocyte # 1.53 X10^3/ul (0.83-4.51); Lymphocyte % 17.4 % (19-41); Mean Corp Hgb Conc 31.8 g/dL (32-36); Mean Corpuscular Hgb 30.7 pg (27.0-32.0); Mean Corpuscular Volume 96.5 fL (81-99); Mean Platelet Vol. 11.6 fl (6.2-12.0); Monocyte# 0.59 X10^3/uL; Monocyte% 6.7 % (0-10); NRBC Flagged by Analyzer 0 % (0-5); Neutrophil # 6.32 X10^3/uL (2.7-7.7); Platelet Count 267 K/mm3 (150-450); RBC Distribution Width CV 12.6 % (11.6-14.6); RBC Distribution Width SD 44.7 fl (35.1-43.9); Red Blood Count 4.63 M/mm3 (4.2-5.4); White Blood Count 8.8 K/mm3 (4.4-11.0)
[2021-09-20 10:52] LABS: International Normalized Ratio 0.9; Prothrombin Time (Protime)PT. 12.3 SECONDS (11.7-14.9)
[2021-09-20 10:53] LABS: Partial Thromboplast Time 28.8 Seconds (24.1-36.2)
== END | disposition home or self-care (01) ==
LOC: LAB 09:54
PROVIDERS: PCP Family Medicine; Referring Provider Internal Medicine Critical Care Medicine; Visit Provider Internal Medicine Critical Care Medicine
DX: R04.2 Hemoptysis (principal)
CPT/HCPCS: 36415; 85025; 85610; 85730

== ENCOUNTER 2021-09-22 12:03 | Emergency (ER) | payer MEDICARE, MEDICAID, SELFPAY ==
[2021-09-22 12:04] VITALS: BP 196/102; PULSE 102; RESP 18; TEMP 36.7; O2SAT 99; BMI 38.9
--- NOTE | 2021-09-22 12:22 | CT_ITS ---
STUDY: CT BRAIN WITHOUT CONTRAST REASON FOR EXAM: Female, 75 years old. PT FELL IN HOSPITAL PARKING LOT, [place] TO RT FOREHEAD. RADIATION DOSAGE (If Supplied By Facility): CTDIvol = ( 42.17 ) mGy, DLP = ( 807.83 ) mGycm TECHNIQUE: Transaxial CT imaging of the brain was performed without administration of intravenous contrast material. Individualized dose optimization techniques were used for this CT. COMPARISON: No relevant priors. FINDINGS: Right periorbital soft tissue swelling with overlying dressing material/bandage. Normal calvarium. Normal size ventricles and extra-axial spaces for the patient''s age. Normal white matter tracts of the cerebral hemispheres. Normal basal ganglia and thalami. Normal brainstem. Normal cerebellum. There is no intracranial hemorrhage. There are no findings of an acute ischemic infarction. Normal visualized paranasal sinuses. CT/Brain/Head without Contrast IMPRESSION: 1. No acute intracranial hemorrhage or mass effect. 2. Right frontal/periorbital soft tissue swelling/injury. Electronically Signed: Dalton Gauthier MD ([place]) at 13:08 EDT Reading Location ID and State: [address] [place] , Service support ,
--- NOTE | 2021-09-22 12:22 | RAD_ITS ---
STUDY: X-RAY - RIGHT KNEE REASON FOR EXAM: Female, 75 years old. trauma, could not remove metal clips from backboard TECHNIQUE: 2 view(s) of the knee. COMPARISON: None. FINDINGS: Comminuted fracture of the distal femur metaphysis with approximately 3.6 cm of displacement. Normal visualized proximal tibia and fibula. Normal proximal tibiofibular articulation. There is moderate degenerative arthrosis of the medial femorotibial compartment with moderate joint space narrowing. There is moderate degenerative arthrosis of the lateral femorotibial compartment with moderate joint space narrowing. There is moderate degenerative arthrosis of the patellofemoral articulation. The soft tissue structures are unremarkable. RAD/Knee 1 or 2 Views IMPRESSION: Distal femur fracture. Electronically Signed: Dalton Gauthier MD ([place]) at 13:28 EDT ,
--- NOTE | 2021-09-22 12:22 | CT_ITS ---
EXAM: CT CERVICAL SPINE WITHOUT INTRAVENOUS CONTRAST CLINICAL INDICATION: Patient fell in hospital parking lot, bruising of the right forehead TECHNIQUE: Helically acquired images were obtained of the cervical spine without intravenous contrast. 2D reformatted images were reviewed. This CT exam was performed using one or more of the following dose reduction techniques: automated exposure control, adjustment of the mA and/or kV according to patient size, and/or use of iterative reconstruction technique. This report was created using [employer] report generation technology. RADIATION DOSE: CTDIvol = 28.89 mGy, DLP = 633.16 mGy-cm COMPARISON: None. FINDINGS: VERTEBRAE: Anterior spondylosis at multiple cervical levels, particularly the lower levels. Multilevel facet arthropathy throughout the cervical spine. DISCS/SPINAL CANAL/NEURAL FORAMINA: Degenerative arthrosis at C1 and C2. Disc space narrowing at C4-C5, C5-C6 and C6-C7 Bilateral foraminal narrowing of the mid cervical spine due to uncovertebral hypertrophy and posterior disc osteophyte complex. SOFT TISSUES: Unremarkable. No prevertebral soft tissue swelling. LYMPH NODES: Unremarkable. No cervical adenopathy. LUNG APICES: Unremarkable as visualized. Clear. CT/Spine Cervical without Contras IMPRESSION: No cervical spine fracture or traumatic subluxation. Electronically Signed: Dalton Gauthier MD (Brooks) at 13:10 EDT Reading Location ID and State: [address] [place] [address] , Service support ,
--- NOTE | 2021-09-22 12:22 | RAD_ITS ---
STUDY: X-RAY - RIGHT FEMUR REASON FOR STUDY: Female, 75 years old. Trauma, could not remove large metal clips from backboard, spent several minutes trying to remove them and could not TECHNIQUE: 4 view(s) of the femur. COMPARISON: None. FINDINGS: Comminuted nondisplaced fracture of the distal femoral metaphysis. Soft tissue swelling. Marked degree of tricompartmental osteoarthritis. RAD/Femur Min 2 Views IMPRESSION: Comminuted nondisplaced fracture of the distal right femur with the soft tissue swelling. Electronically Signed: Edward Espitia MD at 13:41 EDT ,
--- NOTE | 2021-09-22 12:22 | RAD_ITS ---
STUDY: X-RAY - PELVIS REASON FOR EXAM: Female, 75 years old. trauma, trauma, pain TECHNIQUE: One view of the pelvis was obtained. COMPARISON: None. FINDINGS: There is a non-specific bowel gas pattern. Normal visualized soft tissue structures. Backboard artifact Normal bilateral iliac wings, sacroiliac joints and visualized sacrum. Normal visualized bilateral superior and inferior pubic rami. Normal pubic symphysis. Normal ischial tuberosities. Normal visualized right femoral head. Normal right acetabulum. Normal right hip joint. Normal visualized left femoral head. Normal left acetabulum. Normal left hip joint. RAD/Pelvis 1 or 2 Views IMPRESSION: No pelvic ring fracture. Electronically Signed: Dalton Gauthier MD (Brooks) at 13:28 EDT ,
[2021-09-22] MEDS: Morphine 4 MG/ML Syringe IV ×2 (12:28→13:25)
[2021-09-22] MEDS: Ondansetron 4 MG/2 ML Vial IV ×2 (12:28→18:34)
[2021-09-22 12:36] LABS: Absolute Lymphocyte Count 2.31 X10^3/uL (0.83-4.51); Absolute Neutrophil Count 4.8 X10^3/uL (2.0-7.7); Basophil# 0.07 X10^3/uL; Basophil% 0.9 % (0-1); Eosinophil# 0.25 X10^3/uL; Eosinophils% 3.1 % (0-5); Hematocrit 45.2 % (37-47); Hemoglobin 14.6 g/dL (12.0-15.0); Lymphocyte # 2.31 X10^3/ul (0.83-4.51); Lymphocyte % 28.4 % (19-41); Mean Corp Hgb Conc 32.3 g/dL (32-36); Mean Corpuscular Hgb 30.7 pg (27.0-32.0); Mean Corpuscular Volume 95.2 fL (81-99); Mean Platelet Vol. 11.4 fl (6.2-12.0); Monocyte# 0.65 X10^3/uL; NRBC Flagged by Analyzer 0 % (0-5); Neutrophil # 4.84 X10^3/uL (2.7-7.7); Neutrophil % 59.5 % (47-70); Platelet Count 272 K/mm3 (150-450); RBC Distribution Width CV 12.5 % (11.6-14.6); RBC Distribution Width SD 44.1 fl (35.1-43.9); Red Blood Count 4.75 M/mm3 (4.2-5.4); White Blood Count 8.1 K/mm3 (4.4-11.0)
[2021-09-22 12:46] LABS: Anion Gap 7 (5-15); BUN 24 mg/dL (7-18); BUN/Creat Ratio 34.4 RATIO (10-20); Calcium,Total 9.6 mg/dL (8.5-10.1); Chloride 106 mmol/L (98-107); EST Glomerular Filtration Rate 87 mL/min (>60); Est Glom Filt Rate - Afr Amer 105 mL/min (>60); Estimated Creatinine Clearance 40.21 ml/min; Glucose 132 mg/dL (74-106); Potassium 3.1 mmol/L (3.5-5.1); Sodium Level 143 mmol/L (136-145)
--- NOTE | 2021-09-22 13:00 | RAD_ITS ---
STUDY: X-RAY CHEST REASON FOR EXAM: Female, 75 years old. Pain following a fall. TECHNIQUE: Single AP portable view of the chest. The examination was obtained on a backboard. COMPARISON: Comparison is made with prior study dated 02/13/2022. FINDINGS: EKG electrodes are seen. Stable elevation of the right hemidiaphragm. There is no demonstrated pleural abnormality. Normal size heart. Normal mediastinum and christina. Normal visualized pulmonary arteries. There is atherosclerotic calcification of the aortic arch with tortuosity. There are diffuse degenerative changes of the visualized thoracic spine. Normal visualized ribs, clavicles, and shoulders. Surgical clips are seen in the right upper quadrant suggestive of prior cholecystectomy. RAD/Chest 1 View (Portable) IMPRESSION: No acute abnormality is present. Electronically Signed: Edward Espitia MD at 13:40 EDT ,
--- NOTE | 2021-09-22 13:12 | ED.VIS.FALL ---
HPI HPI - Fall History of Present Illness Chief Complaint: Fall Informant: patient Narrative Narrative: Patient presents after a trip and fall in the parking lot. She landed onto her right knee and forehead. There is suspected loss of consciousness. Patient states is her right knee that hurts the most. She has a slight headache. She has slight right hip pain. She denies being on blood thinners despite having history of some heart disease. This was a mechanical trip and fall. This was not syncope. Patient does normally have pain in the right knee. She normally has pain in many areas. She is on fentanyl patch. She is also in pain management for these pains. [facility] Medical History Ambulates with cane Back pain Back problem Dietary restriction Former smoker Frequent UTI Heart disease High blood pressure High cholesterol High cholesterol High triglycerides History of CHF (congestive heart failure) History of edema History of heart attack History of steroid therapy History of wrist fracture Hoarseness Hyperlipidemia Hypertension Non-ST elevation (NSTEMI) myocardial infarction Obesity Osteoarthritis Postmenopausal bleeding Rheumatoid arthritis Shortness of breath on exertion Type 2 diabetes mellitus without complications Wears dentures Wears glasses Wears partial dentures Home Medications fentanyl 25 mcg/hr transdermal patch 1 patch TRANSDERMAL Q72H 09/26/17 [History Last Taken 09/21/21] multivitamin 1 tab PO QAM 09/26/17 [History Last Taken 1 Week Ago ~09/15/21] cholecalciferol (vitamin D3) 125 mcg (5,000 unit) capsule 5,000 unit PO DAILY 10/01/17 [History Last Taken 09/21/21] fluorometholone 0.1 % eye drops,suspension 1 drp OPHTHALMIC Q12H ml 03/11/19 [History Last Taken 09/22/21] gabapentin 300 mg capsule 600 mg PO QHS 03/11/19 [History Last Taken 09/21/21] lidocaine 1 each TP DAILY PRN 09/06/20 [History Last Taken 09/21/21 21:00] lifitegrast 1 drp EACH EYE BID 09/06/20 [History Last Taken 09/21/21] polyethylene glycol 400 1 drp OP DAILY PRN PRN 09/06/20 [History Last Taken 09/21/21] gabapentin 300 mg PO DAILY 02/23/21 [History Last Taken 09/21/21] melatonin 10 mg PO QHS 02/23/21 [History Last Taken 09/21/21] verapamil 120 mg PO DAILY 02/23/21 [History Last Taken 09/22/21] pravastatin 40 mg tablet 40 mg PO QHS #90 tab 06/09/21 [Rx Last Taken 09/21/21] furosemide 40 mg tablet 40 mg PO DAILY #90 tab 06/15/21 [Rx Last Taken 09/21/21] potassium chloride 10 mEq tablet,extended release 10 meq PO DAILY #90 tab 06/15/21 [Rx Last Taken 09/21/21] tizanidine 4 mg tablet 4 mg PO Q8H PRN #90 tab 07/09/21 [Rx Last Taken 09/21/21] albuterol sulfate 90 mcg/actuation aerosol inhaler 2 puff INHALATION Q4H PRN #8.5 g 07/19/21 [Rx Last Taken Unknown] duloxetine 120 mg PO QDAY 09/21/21 [History Last Taken 09/21/21] hydrocodone-acetaminophen 1 tab PO TID PRN 09/21/21 [History Last Taken 09/21/21] Allergy/AdvReac Type Severity Reaction Status Date / Time pregabalin [From Lyrica] Allergy Severe Shortness Verified 09/22/21 12:08 of breath Steroids Allergy Intermediate Vomiting Uncoded 09/22/21 12:08 Family History Brother Alcohol abuse Myocardial infarction Father Angina pectoris Arthritis Myocardial infarction Heart disease Hypertension Mother Arthritis Surgical History H/O dilation and curettage History of bilateral cataract extraction History of cholecystectomy History of gastric bypass (~09/2013) History of hysteroscopy History of tonsillectomy Social History Smoking Status: Former smoker pack-years: 10 alcohol intake: never substance use type: does not use caffeine: Yes what type of physical activity do you participate in: none seatbelt use: always do you feel safe at home: Yes additional social history: - retired ROS ROS ED Constitutional Constitutional ED: Denies chills, fever(s) or sweats Eyes Eyes: Reports other Details: She does have contusion over the right eye. But no visual complaints ; Denies blurry vision ENT ENT ED: Reports other Details: Contusion right supraorbital area. No facial pain any lower than this. Cardiovascular Cardiovascular: Denies chest pain or palpitations Respiratory/Chest Respiratory/Chest: Denies cough or dyspnea Gastrointestinal Gastrointestinal: Denies nausea Musculoskeletal Musculoskeletal: Reports other Details: Patient complains of primarily right knee pain. There is some pain radiating up toward the right hip. Integumentary Reports Abrasions and other Details: Patient/contusion right supraorbital area. Neurologic Neurologic: Reports headache(s) Endocrine Endocrinology: Denies polydipsia or polyuria Hematologic/Lymphatic Hematologic/Lymphatic: Denies easy bleeding or easy bruising Allergic/Immunologic Allergic/Immunologic ED: Denies urticaria EXAM Physical Exam Const Vital Signs: 09/22/21 12:04 09/22/21 12:44 09/22/21 14:05 Temperature 98.1 F Temperature Source Oral Pulse Rate 102 H 97 Respiratory Rate 18 18 Respiratory Effort Normal Non-Labored Respiratory Depth Normal Respiratory Pattern Normal Blood Pressure 196/102 H 184/109 H Blood Pressure Mean 133 134 Pulse Ox 99 98 Oxygen Delivery Method Room Air Room Air Room Air Oxygen Flow Rate (L/min) 09/22/21 15:01 Temperature Temperature Source Pulse Rate Respiratory Rate Respiratory Effort Respiratory Depth Respiratory Pattern Blood Pressure Blood Pressure Mean Pulse Ox 99 Oxygen Delivery Method Nasal Cannula Oxygen Flow Rate (L/min) 2 Positive well nourished and well developed General Appearance ED: well developed and NAD Eyes Eyes Narrative: Contusion above right eye. But the orbit itself does not seem to be involved. General Eye ED: Negative for pale conjunctiva or scleral icterus Neck no lymphadenopathy General: Negative for tenderness Chest Wall inspection of chest normal Resp normal respiratory effort, No no retractions and clear to auscultation bilaterally Auscultation: Negative for rales, rhonchi or wheezes Cardio regular rate and regular rhythm GI non-tender Palpation: soft Back/Spine no CVA tenderness Extremity Extremity Narrative: No gross deformity. She does have some nonfocal tenderness diffusely around the right knee thigh and hip area. Pelvis seems very stable. No tenderness of the left lower extremities or either upper extremity. Neuro oriented x3 Neuro Narrative: Patient is awake alert person place and time. GCS of 15. Sensorium / Orientation: alert Skin Skin Narrative: Abrasion contusion to right forehead area. MDM MDM MDM Narrative Medical decision making narrative: Patient's blood work shows no marked abnormalities. There is some mildly low potassium but I do not think this is the cause of her symptoms. CT scan of head and neck showed no acute process. Chest x-ray pelvis and femur show no issue except for distal femur fracture. Knee x-ray is read as distal femur fracture. It is a 2 view. I also have some suspicion about the lateral plateau of the tibia that may have a small fracture. This can be better defined later with CT. I discussed the case with our orthopedic surgeon. This is not something that is appropriate to do here. I discussed case with [facility]. They are not able to accept the patient at this time. I then discussed case with [facility]. Dr. Flores will accept the patient in transfer. Lab Data Attestation: I reviewed the patient's lab results. Labs: Laboratory Results - last 24 hr 09/22/21 09/22/21 12:15 12:15 WBC 8.1 RBC 4.75 Hgb 14.6 Hct 45.2 MCV 95.2 MCH 30.7 MCHC 32.3 RDW Std Deviation 44.1 H RDW Coeff of Adrianna 12.5 Plt Count 272 MPV 11.4 Immature Gran % (Auto) 0.100 Neut % (Auto) 59.5 Lymph % (Auto) 28.4 [place] % (Auto) 8.0 Eos % (Auto) 3.1 Baso % (Auto) 0.9 Absolute Neuts (auto) 4.8 Absolute Lymphs (auto) 2.31 Nucleated RBC % 0 Sodium 143 Potassium 3.1 L Chloride 106 Carbon Dioxide 30.0 Anion Gap 7 BUN 24 H Creatinine 0.70 Estim Creat Clear Calc 40.21 Est GFR (MDRD) Af Amer 105 Est GFR (MDRD) Non-Af 87 BUN/Creatinine Ratio 34.4 H Glucose 132 H Calcium 9.6 Radiography Diagnostic Testing: Clinical Impression(s) from Imaging Studies Brain CT 09/22/21 12:22 IMPRESSION: 1. No acute intracranial hemorrhage or mass effect. 2. Right frontal/periorbital soft tissue swelling/injury. Electronically Signed: Dalton Gauthier MD (Brooks) at 13:08 EDT Reading Location ID and State: / [place] , Service support , Cervical Spine CT 09/22/21 12:22 IMPRESSION: No cervical spine fracture or traumatic subluxation. Electronically Signed: Dalton Gauthier MD (Brooks) at 13:10 EDT , Femur X-Ray 09/22/21 12:22 IMPRESSION: Comminuted nondisplaced fracture of the distal right femur with the soft tissue swelling. Electronically Signed: Edward Espitia MD at 13:41 EDT , Knee X-Ray 09/22/21 12:22 IMPRESSION: Distal femur fracture. Electronically Signed: Dalton Gauthier MD (Brooks) at 13:28 EDT , Pelvis X-Ray 09/22/21 12:22 IMPRESSION: No pelvic ring fracture. Electronically Signed: Dalton Gauthier MD (Brooks) at 13:28 EDT , Chest X-Ray 09/22/21 13:00 IMPRESSION: No acute abnormality is present. Electronically Signed: Edward Espitia MD at 13:40 EDT , Discharge Plan Triage Chief Complaint: Fall ED Provider: Fly Rodriguez Dx/Rx/DC Orders Clinical Impression: Fall from slip, trip, or stumble, Closed fracture of distal end of right femur, Forehead contusion, Hypokalemia Prescriptions: No Action fentanyl 25 mcg/hr patch 72 hour 1 patch transdermal Q72H RF: 0 multivitamin [Daily Multi-Vitamin] tablet 1 tab PO QAM RF: 0 cholecalciferol (vitamin D3) 5,000 unit capsule 5,000 unit PO DAILY RF: 0 gabapentin 300 mg capsule 600 mg PO QHS RF: 0 fluorometholone 0.1 % drops,suspension 1 drp OPHTHALMIC Q12H RF: 0 furosemide 40 mg tablet 40 mg PO DAILY Qty: 90 RF: 1 potassium chloride 10 mEq tablet extended release 10 meq PO DAILY Qty: 90 RF: 1 albuterol sulfate 90 mcg/actuation HFA aerosol inhaler 2 puff inhalation Q4H PRN (Reason: shortness of breath or wheezing) Qty: 8.5 RF: 1 lidocaine 1 EACH adhesive patch,medicated 1 each TP DAILY PRN (Reason: knee pain) RF: 0 lifitegrast 1 EACH dropperette 1 drp EACH EYE BID RF: 0 polyethylene glycol 400 10 ML drops 1 drp OP DAILY PRN PRN (Reason: Dry Eye) RF: 0 gabapentin 300 mg capsule 300 mg PO DAILY RF: 0 melatonin 10 mg Tablet 10 mg PO QHS RF: 0 verapamil 120 mg capsule,ext rel. pellets 24 hr 120 mg PO DAILY RF: 0 duloxetine 60 mg capsule,delayed release(DR/EC) 120 mg PO QDAY RF: 0 hydrocodone-acetaminophen 7.5-325 mg tablet 1 tab PO TID PRN (Reason: Pain) RF: 0 pravastatin 40 mg tablet 40 mg PO QHS Qty: 90 RF: 1 tizanidine 4 mg tablet 4 mg PO Q8H PRN (Reason: muscle spasticity) Qty: 90 RF: 1 Primary Care Provider: Jose Russell Referrals: Jose Russell, [Primary Care Provider] - Disposition Disposition: Acute Care Hospital Discharge Location: [facility]
[2021-09-22] MEDS: HYDROmorphone 1 MG/ML Syringe IV ×3 (14:04→18:34)
[2021-09-22 14:05] VITALS: BP 184/109; PULSE 97; RESP 18; O2SAT 98
[2021-09-22 15:01] VITALS: O2SAT 80; O2SAT 99
--- NOTE | 2021-09-22 16:41 | NURSING ---
CALLED [facility], ETA IS 2 HRS
[2021-09-22 16:53] VITALS: BP 163/103
[2021-09-22] MEDS: fentaNYL 100 MCG/2 ML Ampul 50 MCG IV (17:11)
--- NOTE | 2021-09-22 17:36 | NURSING ---
report called to nurse at [facility] at this time. awaiting transport.
[2021-09-22 17:39] VITALS: BP 146/90; PULSE 105; RESP 20; O2SAT 97
[2021-09-22 18:00] VITALS: BP 157/85; PULSE 105; RESP 15; O2SAT 100
--- NOTE | 2021-09-22 18:36 | ED.RN ---
PT STATES SOMETHING NEEDS DONE WITH HER KNEE IMMOBILIZER. PER , OK TO LOOSEN VELCRO BUT STILL LEAVE DEVICE IN PLACE. [facility]'S INTACT
== END 2021-09-22 18:56 | disposition short-term general hospital (02) ==
PROVIDERS: Emergency Provider Emergency Medicine; PCP Family Medicine; Visit Provider Emergency Medicine
DX: S72.491A Other fracture of lower end of right femur, initial encounter for closed fracture (principal); M06.9 Rheumatoid arthritis, unspecified; I11.0 Hypertensive heart disease with heart failure; I50.9 Heart failure, unspecified; E11.9 Type 2 diabetes mellitus without complications; S00.83XA Contusion of other part of head, initial encounter; W01.0XXA Fall on same level from slipping, tripping and stumbling without subsequent striking against object, initial encounter; Y92.481 Parking lot as the place of occurrence of the external cause; E87.6 Hypokalemia; E78.5 Hyperlipidemia, unspecified; I25.2 Old myocardial infarction; E78.00 Pure hypercholesterolemia, unspecified; Z79.899 Other long term (current) drug therapy; Z87.891 Personal history of nicotine dependence
CPT/HCPCS: 70450; 71045; 72125; 72170; 73552; 73560; 80048; 85025; 96374; 96375; 96376; 99285; A4216; J2405

== ENCOUNTER → 2022-02-06 | Outpatient (CLI) | payer MEDICARE, MEDICAID, SELFPAY ==
[2022-02-06 11:40] LABS: Mucous, Urine 0 SEEN /hpf (<or=2+)
[2022-02-06 12:11] LABS: Color, Urine Yellow (Yellow); Glucose, Dipstick Normal (Normal); Ketone-Dipstick Negative (Negative); Leukocyte Esterase-Dipstick 500 /ul (Negative); Nitrite-Dipstick Positive (Negative); Occult Blood-Urine 50 /ul (Negative); Protein-Dipstick 15 mg/dl (Negative); Urine Bilirubin Dipstick Negative (Negative); Urine Clarity Sl. Cloudy (Clear); Urine Urobilinogen 1 mg/dl (Normal)
[2022-02-06 12:17] LABS: Bacteria 3+ /hpf (None Seen); Red Blood Cells-Urine 0-5 SEEN /hpf (0-5); Squamous Epithelial Cells - UA 0-5 SEEN /hpf (5-10); White Blood Cells 25-50 SEEN /hpf (0-5)
== END | disposition home or self-care (01) ==
LOC: LABSPEC 11:37
PROVIDERS: PCP Family Medicine; Referring Provider Physician Assistant; Visit Provider Physician Assistant
DX: N39.0 Urinary tract infection, site not specified (principal)
CPT/HCPCS: 81001; 87077; 87086; 87088; 87186

== ENCOUNTER → 2022-03-21 | Outpatient (CLI) | payer MEDICARE, MEDICAID, SELFPAY ==
[2022-03-21 15:20] LABS: Mucous, Urine 0 SEEN /hpf (<or=2+)
[2022-03-21 15:32] LABS: Color, Urine Yellow (Yellow); Glucose, Dipstick Normal (Normal); Ketone-Dipstick 5 mg/dl (Negative); Leukocyte Esterase-Dipstick 500 /ul (Negative); Nitrite-Dipstick Negative (Negative); Occult Blood-Urine 50 /ul (Negative); Protein-Dipstick 15 mg/dl (Negative); Specific Gravity, Urine 1.025 (1.002-1.030); Urine Bilirubin Dipstick Negative (Negative); Urine Clarity Sl. Cloudy (Clear); Urine Urobilinogen Normal (Normal)
[2022-03-21 15:48] LABS: Bacteria 3+ /hpf (None Seen); Red Blood Cells-Urine 0-5 SEEN /hpf (0-5); Squamous Epithelial Cells - UA 0-5 SEEN /hpf (5-10); White Blood Cells 10-25 SEEN /hpf (0-5)
== END | disposition home or self-care (01) ==
LOC: LABSPEC 14:57
PROVIDERS: PCP Family Medicine; Visit Provider Physician Assistant
DX: N30.00 Acute cystitis without hematuria (principal)
CPT/HCPCS: 81001; 87086; 87088; 87186

== ENCOUNTER → 2022-04-12 | Outpatient (CLI) | payer MEDICARE, MEDICAID, SELFPAY ==
[2022-04-12 23:44] LABS: Mucous, Urine 0 SEEN /hpf (<or=2+)
[2022-04-13 00:01] LABS: Color, Urine Yellow (Yellow); Glucose, Dipstick Normal (Normal); Ketone-Dipstick 5 mg/dl (Negative); Leukocyte Esterase-Dipstick 500 /ul (Negative); Nitrite-Dipstick Positive (Negative); Occult Blood-Urine 150 /ul (Negative); Protein-Dipstick 30 mg/dl (Negative); Specific Gravity, Urine 1.015 (1.002-1.030); Urine Bilirubin Dipstick Negative (Negative); Urine Clarity Cloudy (Clear); Urine Urobilinogen 1 mg/dl (Normal)
[2022-04-13 00:57] LABS: Red Blood Cells-Urine 10-25 SEEN /hpf (0-5); Squamous Epithelial Cells - UA 0-5 SEEN /hpf (5-10); White Blood Cells >100 SEEN /hpf (0-5)
[2022-04-13 00:58] LABS: Bacteria 4+ /hpf (None Seen)
== END | disposition home or self-care (01) ==
PROVIDERS: PCP Family Medicine; Visit Provider Physician Assistant Surgical
DX: N30.00 Acute cystitis without hematuria (principal); R30.0 Dysuria
CPT/HCPCS: 81001; 87086; 87088; 87186

== ENCOUNTER → 2022-05-02 | Outpatient (CLI) | payer MEDICARE, MEDICAID, SELFPAY ==
[2022-05-02 13:51] LABS: Red Blood Cells-Urine 0 SEEN /hpf (0-5); White Blood Cells 0 SEEN /hpf (0-5)
[2022-05-02 15:35] LABS: AST(SGOT) 15 U/L (15-37); Alanine Aminotransfer ALT/SGPT 18 U/L (13-56); Albumin, Serum 3.3 g/dL (3.2-5.0); Alkaline Phosphatase 132 U/L (45-117); Anion Gap 7 (5-15); BUN 22 mg/dL (7-18); BUN/Creat Ratio 34.9 RATIO (10-20); Chloride 103 mmol/L (98-107); Cholesterol 182 mg/dL (200); Creatinine, Serum 0.63 mg/dL (0.55-1.02); EST Glomerular Filtration Rate 98 mL/min (>60); Est Glom Filt Rate - Afr Amer 118 mL/min (>60); Globulin 3.3 g/dL (2.2-4.2); Glucose 124 mg/dL (74-106); High Density Lipoprotein 48 mg/dL; Potassium 3.8 mmol/L (3.5-5.1); Protein, Total 6.6 g/dL (6.4-8.2); Sodium Level 141 mmol/L (136-145); Triglycerides 167 mg/dL; Very Low Density Lipoprotein 33 mg/dL (5-40)
[2022-05-02 15:41] LABS: Color, Urine Yellow (Yellow); Glucose, Dipstick Normal (Normal); Ketone-Dipstick Negative (Negative); Leukocyte Esterase-Dipstick 25 /ul (Negative); Nitrite-Dipstick Negative (Negative); Occult Blood-Urine 25 /ul (Negative); Protein-Dipstick 15 mg/dl (Negative); Urine Bilirubin Dipstick Negative (Negative); Urine Clarity Clear (Clear); Urine Urobilinogen Normal (Normal)
[2022-05-02 16:13] LABS: Calcium Oxalate Crystals Ur 1+ /hpf (<or=2+)
[2022-05-02 16:15] LABS: Mucous, Urine 1+ /hpf (<or=2+); Squamous Epithelial Cells - UA 0-5 SEEN /hpf (5-10)
[2022-05-02 16:16] LABS: Bacteria RARE /hpf (None Seen)
== END | disposition home or self-care (01) ==
LOC: BIMLAB 13:29
PROVIDERS: PCP Family Medicine; Referring Provider Family Medicine; Visit Provider Family Medicine
DX: I10 Essential (primary) hypertension (principal); E78.2 Mixed hyperlipidemia; N30.00 Acute cystitis without hematuria
CPT/HCPCS: 36415; 80053; 80061; 81001

== ENCOUNTER → 2022-05-10 | Outpatient (CLI) | payer MEDICARE, MEDICAID, SELFPAY | END | disposition home or self-care (01) | LOC: LABSPEC 13:04 | PROVIDERS: PCP Family Medicine; Referring Provider Family Medicine; Visit Provider Family Medicine | DX: N30.00 Acute cystitis without hematuria (principal) | CPT/HCPCS: 87086; 87088 ==

== ENCOUNTER → 2022-07-10 | Outpatient (CLI) | payer MEDICARE, MEDICAID, SELFPAY ==
[2022-07-10 16:11] LABS: Mucous, Urine 0 SEEN /hpf (<or=2+); Red Blood Cells-Urine 0 SEEN /hpf (0-5); Squamous Epithelial Cells - UA 0 SEEN /hpf (5-10)
[2022-07-10 16:19] LABS: Color, Urine Yellow (Yellow); Glucose, Dipstick Normal (Normal); Ketone-Dipstick Negative (Negative); Leukocyte Esterase-Dipstick 100 /ul (Negative); Nitrite-Dipstick Positive (Negative); Occult Blood-Urine 10 /ul (Negative); Protein-Dipstick Negative (Negative); Urine Bilirubin Dipstick Negative (Negative); Urine Clarity Clear (Clear); Urine Urobilinogen Normal (Normal)
[2022-07-10 16:25] LABS: Bacteria 1+ /hpf (None Seen); White Blood Cells 5-10 SEEN /hpf (0-5)
== END | disposition home or self-care (01) ==
LOC: LABSPEC 15:42
PROVIDERS: PCP Family Medicine; Visit Provider Physician Assistant Surgical
DX: N30.00 Acute cystitis without hematuria (principal)
CPT/HCPCS: 81001; 87077; 87086; 87088; 87186

== ENCOUNTER → 2022-10-24 | Outpatient (CLI) | payer MEDICARE, MEDICAID, SELFPAY ==
[2022-10-24 16:16] LABS: Anion Gap 4 (5-15); BUN 25 mg/dL (7-18); BUN/Creat Ratio 36.4 RATIO (10-20); Calcium,Total 9.3 mg/dL (8.5-10.1); Chloride 107 mmol/L (98-107); Cholesterol 183 mg/dL (200); Creatinine, Serum 0.69 mg/dL (0.55-1.02); EST Glomerular Filtration Rate 88 mL/min (>60); Est Glom Filt Rate - Afr Amer 107 mL/min (>60); Glucose 100 mg/dL (74-106); High Density Lipoprotein 46 mg/dL; Potassium 4.3 mmol/L (3.5-5.1); Sodium Level 144 mmol/L (136-145); Triglycerides 166 mg/dL; Very Low Density Lipoprotein 33 mg/dL (5-40)
== END | disposition home or self-care (01) ==
LOC: BIMLAB 13:20
PROVIDERS: PCP Family Medicine; Visit Provider Family Medicine
DX: R53.83 Other fatigue (principal); I10 Essential (primary) hypertension; N30.00 Acute cystitis without hematuria
CPT/HCPCS: 36415; 80048; 80061; 87086; 87088; 87186

== ENCOUNTER → 2022-12-20 | Outpatient (CLI) | payer MEDICARE, MEDICAID, SELFPAY ==
[2022-12-20 10:24] LABS: Bacteria 0 SEEN /hpf (None Seen); Mucous, Urine 0 SEEN /hpf (<or=2+); Red Blood Cells-Urine 0 SEEN /hpf (0-5); Squamous Epithelial Cells - UA 0 SEEN /hpf (5-10); White Blood Cells 0 SEEN /hpf (0-5)
[2022-12-20 13:57] LABS: Color, Urine Yellow (Yellow); Glucose, Dipstick Normal (Normal); Ketone-Dipstick Negative (Negative); Leukocyte Esterase-Dipstick Negative /ul (Negative); Nitrite-Dipstick Negative (Negative); Occult Blood-Urine 10 /ul (Negative); Protein-Dipstick Negative (Negative); Specific Gravity, Urine 1.015 (1.002-1.030); Urine Bilirubin Dipstick Negative (Negative); Urine Clarity Clear (Clear); Urine Urobilinogen Normal (Normal)
== END | disposition home or self-care (01) ==
PROVIDERS: PCP Family Medicine; Referring Provider Family Medicine; Visit Provider Family Medicine
DX: N30.90 Cystitis, unspecified without hematuria (principal)
CPT/HCPCS: 81001

== ENCOUNTER → 2023-05-01 | Outpatient (CLI) | payer MEDICARE, MEDICAID, SELFPAY ==
[2023-05-01 13:04] LABS: Red Blood Cells-Urine 0 SEEN /hpf (0-5)
[2023-05-01 15:02] LABS: Color, Urine Yellow (Yellow); Glucose, Dipstick Normal (Normal); Ketone-Dipstick Negative (Negative); Leukocyte Esterase-Dipstick 500 /ul (Negative); Nitrite-Dipstick Positive (Negative); Occult Blood-Urine 25 /ul (Negative); Protein-Dipstick 15 mg/dl (Negative); Urine Bilirubin Dipstick Negative (Negative); Urine Clarity Sl. Cloudy (Clear); Urine Urobilinogen Normal (Normal)
[2023-05-01 15:11] LABS: Bacteria 4+ /hpf (None Seen); Mucous, Urine RARE /hpf (<or=2+); White Blood Cells 10-25 SEEN /hpf (0-5)
[2023-05-01 15:12] LABS: Squamous Epithelial Cells - UA 5-10 SEEN /hpf (5-10)
[2023-05-01 15:16] LABS: ALB/GLOB Ratio 1.1 RATIO (0.9-2.4); AST(SGOT) 26 U/L (15-37); Alanine Aminotransfer ALT/SGPT 19 U/L (13-56); Albumin, Serum 3.7 g/dL (3.2-5.0); Alkaline Phosphatase 91 U/L (45-117); Anion Gap 5 (5-15); BUN 20 mg/dL (7-18); BUN/Creat Ratio 28.8 RATIO (10-20); Calcium,Total 8.9 mg/dL (8.5-10.1); Chloride 106 mmol/L (98-107); Cholesterol 169 mg/dL (200); EST Glomerular Filtration Rate 87 mL/min (>60); Est Glom Filt Rate - Afr Amer 105 mL/min (>60); Globulin 3.3 g/dL (2.2-4.2); Glucose 126 mg/dL (74-106); High Density Lipoprotein 54 mg/dL; Sodium Level 142 mmol/L (136-145); Triglycerides 112 mg/dL; Very Low Density Lipoprotein 22 mg/dL (5-40)
== END | disposition home or self-care (01) ==
LOC: BIMLAB 12:05
PROVIDERS: PCP Family Medicine; Referring Provider Family Medicine; Visit Provider Family Medicine
DX: N30.00 Acute cystitis without hematuria (principal); E11.9 Type 2 diabetes mellitus without complications; I10 Essential (primary) hypertension
CPT/HCPCS: 36415; 80053; 80061; 81001; 87086; 87088; 87186

== ENCOUNTER → 2025-02-03 | Outpatient (CLI) | payer MEDICARE, MEDICAID, SELFPAY ==
[2025-02-03 15:28] LABS: Hematocrit 42.6 % (37-47); Hemoglobin 13.5 g/dL (12.0-15.0); Immature Granulocytes Count 0.040 X10^3/uL (0.0-0.0); Mean Corp Hgb Conc 31.7 g/dL (32-36); Mean Corpuscular Volume 97.9 fL (81-99); Mean Platelet Vol. 12.0 fl (6.2-12.0); NRBC Flagged by Analyzer 0 % (0-5); Platelet Count 228 K/mm3 (150-450); RBC Distribution Width CV 12.2 % (11.6-14.6); RBC Distribution Width SD 45.0 fl (35.1-43.9); Red Blood Count 4.35 M/mm3 (4.2-5.4); White Blood Count 8.6 K/mm3 (4.4-11.0)
[2025-02-03 15:53] LABS: AST(SGOT) 27 U/L (<=31); Alanine Aminotransfer ALT/SGPT 16 U/L (<=34); Albumin, Serum 4.2 g/dL (3.4-4.8); Alkaline Phosphatase 87 U/L (35-104); Anion Gap 10 (5-15); BUN 24 mg/dL (4-19); BUN/Creat Ratio 38.9 RATIO (10-20); Calcium,Total 9.4 mg/dL (7.6-11.0); Carbon Dioxide 28.4 mmol/L (21.0-32.0); Chloride 105 mmol/L (98-108); Globulin 2.8 g/dL (2.2-4.2); Glucose 113 mg/dL (70-99); Potassium 4.2 mmol/L (3.3-5.1)
== END | disposition home or self-care (01) ==
PROVIDERS: PCP Family Medicine; Referring Provider Family Medicine; Visit Provider Family Medicine
DX: E11.9 Type 2 diabetes mellitus without complications (principal); I10 Essential (primary) hypertension
CPT/HCPCS: 36415; 80053; 85025